=== PATIENT | female | born 1935 | race Caucasian/White ===

== ENCOUNTER 2020-11-22 21:22 | Inpatient (IN) | payer MEDICARE, SELFPAY ==
[2020-11-22] VITALS (13 sets, daily range): BP systolic 94–104; BP diastolic 37–61; PULSE 105–121; RESP 15–30; TEMP 37.6; O2SAT 85–95
--- NOTE | ~2020-11-22 | XR_ITS ---
EXAMINATION: XR chest 1V EXAM DATE: 11/27/2020 10:23 INDICATION: Pneumonia, weakness and confusion. TECHNIQUE: Portable AP frontal chest x-ray was obtained. Comparison is made to prior examination from 11/23/2020. FINDINGS: There is a right subclavian venous line, tip projecting over right atrium unchanged. Again there are numerous punctate lung granulomata. Small amount of left lower lobe pneumonia and atelectas is, stable or decreased in size. There are no pleural effusions. The cardiac silhouette is enlarged . There is pulmonary vascular congestion. There is no significant interval change. There is no pne umothorax suspected. The bones are osteopenic. There are bony degenerative changes. There is aortic arteriosclerosis. IMPRESSION: 1. Small amount of left lower lobe pneumonia or atelectasis, improving. 2. Right subclavian line could be safely retracted 5 cm. 3. Cardiomegaly, congestion. Reviewed, dictated and finalized at location B. ORATE COMMUNICATIONS MANAGER
--- NOTE | ~2020-11-22 | XR_ITS ---
EXAMINATION: XR chest port-a-cath/central DATE: 11/23/2020 04:32 INDICATION: Central line placement TECHNIQUE: frontal view of the chest was obtained. COMPARISON: Chest radiograph dated 11/23/2020 at 3:14 AM FINDINGS: Interval placement of a right subclavian central venous catheter with distal tip in the right atrium. Persistent patchy airspace opacity in the left lower lung zone. There is more subtle opacities in bi lateral lower lung zones have resolved. Multiple bilateral scattered small calcified pulmonary nodule s consistent with old granulomatous disease. Cardiomegaly. A couple compression fractures at the thor acolumbar junction. IMPRESSION: 1. Right subclavian central venous catheter with distal tip in the right atrium. Consider withdrawal by [address] the tip near the superior cavoatrial junction. 2. Persistent consolidation in the left lower lung zone which could represent atelectasis and/or pneu monia. 3. Cardiomegaly. Reviewed, dictated and finalized at location A. NG MACHINE FEEDER IMPRESSION: 1. Right subclavian central venous catheter with distal tip in the right atrium . Consider withdrawal by [address] the tip near the superior cavoatrial toni ction. 2. Persistent consolidation in the left lower lung zone which could represent a telectasis and/or pneumonia. 3. Cardiomegaly.
--- NOTE | ~2020-11-22 | US_ITS ---
EXAMINATION: US venous doppler LE EXAM DATE: 11/27/2020 10:22 INDICATION: Asymmetric edema of the legs. TECHNIQUE: Multiple grayscale, color flow and Doppler images of the lower extremity deep venous syste ms bilaterally were obtained and reviewed. Comparison is made to prior examination from 01/11/2019. FINDINGS: Right side: The right common femoral, femoral and profunda veins demonstrate normal color flow, respi ratory variation, augmentation and compressibility. Compressibility, color flow confirmed within the right popliteal, posterior tibial, peroneal, and greater saphenous veins. Resolution of previously seen right thigh thrombus. Left side: The left common femoral, femoral and profunda veins demonstrate normal color flow, respira tory variation, augmentation and compressibility. Compressibility, color flow confirmed within the l eft popliteal, posterior tibial, peroneal, and greater saphenous veins. IMPRESSION: 1. No lower extremity deep venous thrombosis bilaterally. Reviewed, dictated and finalized at location B. LIANCE ADMINISTRATOR
--- NOTE | ~2020-11-22 | XR_ITS ---
EXAMINATION: XR chest 1V portable DATE: 11/23/2020 03:13 INDICATION: Pneumonia TECHNIQUE: frontal view of the chest was obtained. COMPARISON: Chest radiograph dated 01/11/2019 FINDINGS: Mild opacities in the bilateral lower lung zones with more dense bandlike consolidation at the medial left lower lung zone. Multiple bilateral small scattered calcified nodules consistent with old granu lomatous disease. No pleural effusion or pneumothorax. Cardiomegaly with pulmonary vascular congestio n. IMPRESSION: 1. Mild opacities in bilateral lower lung zones with more dense consolidation in the medial left lowe r lung zone. Differential would include pneumonia, pulmonary edema, atelectasis or some combination t hereof. 2. Cardiomegaly with pulmonary vascular congestion. Reviewed, dictated and finalized at location A. ING ROOM SUPERVISOR IMPRESSION: 1. Mild opacities in bilateral lower lung zones with more dense consolidation i n the medial left lower lung zone. Differential would include pneumonia, pulmon rina edema, atelectasis or some combination thereof. 2. Cardiomegaly with pulmonary vascular congestion.
--- NOTE | ~2020-11-22 | CT_ITS ---
EXAMINATION: CT abdomen pelvis wo con DATE: 11/23/2020 00:16 INDICATION: Gastrointestinal bleed. Abdominal pain. Diarrhea. TECHNIQUE: Computed tomography (CT) of the abdomen and pelvis was performed without intravenous contr ast. Automated exposure control and iterative reconstruction technique were employed. The dose-length product was 311.68 mGy-cm. COMPARISON: 01/09/2019 FINDINGS: Very small right pleural effusion. Subtle centrilobular airspace opacities in the bilateral lower lob es with more dense region of consolidation at the posterior medial left lower lobe consistent with pn eumonia. Visualized inferior heart appears normal. Small pericardial effusion. Small sliding-type hia sean hernia. Sludge and gallstones in the dependent aspect of the gallbladder. Liver, spleen and bilateral adrenal glands are normal. Mild bilateral renal atrophy. 1-2 mm stone at the lower pole of the right kidney. Multiple additional small calcification is at the lateral renal galileo appear associated with vessels and are more likely to represent a prostatic calcifications and additional renal stones. No hydroneph rosis. Prominent inflammatory stranding surrounding the head of the pancreas and duodenum with retroperitone al fluid tracking caudally along the anterior right pararenal space. Findings consistent with acute i nterstitial pancreatitis. Suggestion of associated reactive periportal lymphadenopathy. Scattered colonic diverticula without adjacent inflammatory change to suggest diverticulitis. Left lo wer quadrant and colostomy with Argueta's pouch in the pelvis. Parastomal herniation of a moderate am ount of fat. No bowel obstruction. Bladder is normal. Multiple coarsely calcified degenerated uterine fibroids. The endometrial complex measures approximately 11 mm in thickness which is significantly g reater than expected for age. No abscess or free intraperitoneal gas. Right gluteus elysia intramusc ular lipoma. Moderate lumbar spondylosis. Chronic T11-L1 burst fractures with mild retropulsion resul ting in mild central canal stenosis at T10-T11 and T12-L1. Old healed left superior and inferior pubi c rami fractures. IMPRESSION: 1. Acute interstitial pancreatitis with prominent inflammatory stranding surrounding the head of the pancreas likely reactive periportal lymphadenopathy. 2. Pneumonia in the bilateral lower lung zones with tiny right pleural effusion. 3. Small sliding-type hiatal hernia with wall thickening at the distal esophagus suggesting reflux es ophagitis. 4. Sludge and gallstones in the gallbladder. 5. Mild diverticulosis with prior partial colectomy with left lower quadrant and colostomy and Hartma n's pouch formation. 6. Fibroid uterus with thickened endometrial complex which could be due to endometrial hyperplasia or carcinoma. Consider either hysteroscopy or pelvic ultrasound for further evaluation. 7. Nonobstructing nephrolithiasis. Reviewed, dictated and finalized at location A. STEWARD IMPRESSION: 1. Acute interstitial pancreatitis with prominent inflammatory stranding surrou nding the head of the pancreas likely reactive periportal lymphadenopathy. 2. Pneumonia in the bilateral lower lung zones with tiny right pleural effusion . 3. Small sliding-type hiatal hernia with wall thickening at the distal esophagu s suggesting reflux esophagitis. 4. Sludge and gallstones in the gallbladder. 5. Mild diverticulosis with prior partial colectomy with left lower quadrant an d colostomy and Argueta's pouch formation. 6. Fibroid uterus with thickened endometrial complex which could be due to endo metrial hyperplasia or carcinoma. Consider either hysteroscopy or pelvic ultras ound for further evaluation. 7. Nonobstructing nephrolithiasis.
[2020-11-22 21:55] LABS: Hematocrit 29.6 % (37.0-47.0); Hemoglobin 10.2 g/dL (12.0-15.0); Mean Corpuscular HGB Conc 34.5 g/dl (32-36); Mean Corpuscular Hemoglobin 29.7 pg (26-34); Mean Corpuscular Volume 86.3 fl (80-100); Mean Platelet Volume 10.7 fl (7.4-10.4); Platelet Count Result 311 k/mm3 (150-375); Red Blood Count 3.43 M/mm3 (4.2-5.4); Red Cell Distribution Width 13.4 % (11.5-14.5); White Blood Count 24.9 K/mm3 (4.5-10.0)
[2020-11-22 22:03] LABS: Add Urine Microscopic? YES; Appearance Urine Cloudy (Clear); Bacteria Urine 1+ /hpf; Bilirubin Urine Negative (Negative); Blood Urine 2+ (Negative); Color Urine Yellow (Yellow); Glucose Urine UA 1+ mg/dL (Negative); Ketones Urine Trace mg/dL (Negative); Leukocyte Esterase Ur Negative LEU/UL (Negative); Mucus Urine Few /lpf; Nitrate Urine Negative (Negative); Protein Urine 1+ mg/dL (Negative); RBC Urine 0-2 /hpf (0-2); Specific Grav Ur 1.014 (1.001-1.035); Urobilinogen Urine Negative mg/dL (<2.0); WBC Urine 0-3 /hpf
[2020-11-22 22:28] LABS: Band Neutrophils Percent 4 % (0-6); Lymphocytes Absolute Manual 0.74 K/mm3 (1.1-4.5); Monocytes Absolute Manual 0.49 K/mm3 (0.1-0.90); Monocytes Percent Manual 2 % (3-9); Neutrophils Absolute Manual 23.65 K/mm3 (1.7-7.2); Neutrophils Percent Manual 91 % (46-73); Platelet Estimate Adequate (Adequate); Total Cells Counted 100
[2020-11-22 22:40] LABS: INR 1.2; Prothrombin Time 15.3 Seconds (11.1-14.7)
[2020-11-22 22:41] LABS: Partial Thromboplastin Time 30.9 SECONDS (22.3-36.8)
--- NOTE | 2020-11-22 22:51 | ED.NAVMDI ---
HPI - Nausea/Vomiting/Diarrhea General Chief complaint: Nausea/Vomiting/Diarrhea Stated complaint: GI bleed Time Seen by Provider: 11/22/20 21:29 Source: EMS Mode of arrival: EMS Limitations: altered mental status History of Present Illness HPI Narrative: An 85-year-old female was brought into the emergency department via EMS. Patient is pleasantly confused, EMS provides most of the history. They report that the [facility] called EMS because she was apparently having coffee-ground emesis and had a hypotensive blood pressure of 96/46. This is unusual for the patient apparently. Patient is confused complaining of some mild abdominal pain that she characterizes as generalized. Related Data Allergies Allergy/AdvReac Type Severity Reaction Status Date / Time No Known Allergies Allergy Unverified 02/12/19 01:59 Review of Systems Review of Systems: ROS unobtainable: Yes unobtainable due to mental status PMFSH Social History Social History (Updated 11/23/20 @ 02:50 by Vincenzo Fatima MD) Smoking status: Never smoker Exam Narrative: Exam Narrative: GENERAL: Well-appearing, well-nourished, and in no acute distress. HEAD: Normocephalic, atraumatic. EYES: PERRLA and EOMI. ENT: Nares clear, no rhinorrhea or epistaxis. Mucous membranes moist. Oropharynx without tonsillar hypertrophy exudate or other lesions. Bilateral TMs pearly fong nonbulging NECK: Supple. No adenopathy or masses. No carotid bruits or JVD CHEST: Clear to auscultation. No respiratory distress. No wheezes rales or rhonchi HEART: Regular rate and rhythm. No murmur heard. Normal peripheral pulses. ABDOMEN: Soft, nontender, nondistended, normal active bowel sounds. Ostomy noted in the left lower quadrant filled with black/tarry stools EXTREMITIES: Normal range of motion. No edema. SKIN: Warm, dry, no rash. NEURO: No focal deficits. Alert and oriented x3. PSYCH: Normal mood and affect. Course Reevaluation(s) Reevaluation #1: Reevaluated and provided care update. Patient is resting comfortably, no complaints at this time. Time: 01:11 Reevaluation #2: Even after 2-1/2 L of IV fluids patient's blood pressures were continuing to remain soft and get softer. I went ahead and placed a central line and started the patient on Levophed. Time: 04:02 Consultations Consultation #1: With the upper GI bleed and findings of pancreatitis/duodenitis patient will likely need GI intervention. Case was discussed with Dr. Nunez. No one is currently on-call for GI. Dr. Nunez did call back and stated that he is not on-call and to try speaking with Dr. Drew. Time: 01:03 Consultation #2: Spoke with Dr. Drew, GI. After pertinent details of the patient's presentation and evaluation were discussed he does agree to consult on this patient. He recommends stopping the drip in favor of treating the patient with 40 mg IV twice daily. Time: 01:07 Consultation #3: Case discussed with Dr. Fatima, hospitalist. Details of the patient's presentation, evaluation and work-up were discussed. Plan was for the patient to be admitted as her blood pressures have been stable however as I was talking her blood pressure had dropped. Will continue to monitor to see if the patient needs ICU placement. Time: 01:38 Additional Consultation(s): Case further discussed with Dr. Andrea, home health care worker. He agrees to expect the patient in the ICU and will continue to monitor her for further management. Vital Signs Vital signs: Vital Signs Temperature 37.6 C H 11/22/20 21:23 Pulse Rate 119 H 11/22/20 21:23 Respiratory Rate 22 H 11/22/20 21:23 Blood Pressure 96/46 L 11/22/20 21:23 Pulse Oximetry 93 11/22/20 21:23 Temperature 37.4 C 11/23/20 02:34 Pulse Rate 106 H 11/23/20 02:34 Respiratory Rate 21 H 11/23/20 02:34 Blood Pressure 101/54 L 11/23/20 02:34 Pulse Oximetry 94 11/23/20 02:34 Procedures Central Line Placement Right SC: Central Line Time: 04:13
[2020-11-22 23:02] LABS: Alanine Aminotransferase 16 U/L (4-35); Albumin Level 2.6 g/dL (3.5-5.1); Alkaline Phosphatase 112 U/L (38-126); Anion Gap 6 mmol/L (8-16); Aspartate Amino Transferase 35 U/L (14-36); Bilirubin,Total 0.9 mg/dL (0.2-1.3); Blood Urea Nitrogen 71 mg/dL (7-17); Calcium 7.3 mg/dL (8.4-10.2); Carbon Dioxide 26 mmol/L (22-30); Chloride 93 mmol/L (98-107); Estimated CRCL calculation 20 ml/min; Estimated Glomerular Filt Rate 31; Glucose 261 mg/dL (65-105); Lipase 233 U/L (23-300); Magnesium 1.7 mg/dL (1.6-2.3); Potassium 2.8 mmol/L (3.4-5.0); Sodium 125 mmol/L (137-145)
[2020-11-22] MEDS: LACTATED RINGERS 1,000 ML 999 ML IV CONT (23:22)
[2020-11-22] MEDS: ONDANSETRON INJ 4 MG/2 ML VIAL IV PUSH (23:22)
[2020-11-23] VITALS (58 sets, daily range): BP systolic 80–127; BP diastolic 34–66; PULSE 86–123; RESP 14–31; TEMP 36.6–37.6; O2SAT 90–99; BMI 23.3
[2020-11-23] MEDS: PANTOPRAZOLE SODIUM IV 40 MG VIAL 80 MG IV PUSH (00:57)
[2020-11-23] MEDS: LACTATED RINGERS 1,000 ML 999 ML IV CONT ×2 (01:44→11:17)
--- NOTE | 2020-11-23 02:00 | PC.NURSE ---
EDP Nast in room for central line placement.
--- NOTE | 2020-11-23 02:35 | PM.IMHP ---
H&P: HPI History of Present Illness Date/Time: 11/23/20 02:35 Chief Complaint: coffee ground emesis and hypotension Narrative: This is an 85 year old female with known LLQ colostomy who presented from the long-term secondary to coffee ground emesis and hypotension. The patient is confused and was complaining of generalized abdominal pain to the ER provider. The patient was evaluated in the ER and found to be in septic shock with leukocytosis of 24,900, tachycardia, and hypotension despite 3L of NS IV bolus. Colostomy contents were guiaic positive+ CT abd/pelvis demonstrated acute pancreatitis, duodenitis, as well as bibasilar infiltrates. ER provider consulted Gastroenterology who will see the patient in am. She was also treated with IV antibiotics for pneumonia. On my encounter with the patient she is very confused and cannot tell me why she is here. She currently denies any symptoms. Review of Systems Review of Systems: ROS unobtainable: Yes unobtainable due to mental status PMFSH Social History Social History (Updated 11/23/20 @ 02:50 by Vincenzo Fatima MD) Smoking status: Unknown if ever smoked Alcohol intake: unknown Substance use: unknown Spiritual care concerns: No Comments Past medical/surgical/social/family histories are not obtainable from the patient due to her confusion. Meds Home Medications and Allergies Home Medications Medication Instructions Recorded Confirmed Type Unable to Obtain Home Medications 11/23/20 11/23/20 History Allergies Allergy/AdvReac Type Severity Reaction Status Date / Time No Known Allergies Allergy Unverified 02/12/19 01:59 Vital Signs Vital Signs - 24 hr 11/22/20 21:23 11/22/20 22:25 11/22/20 22:30 Temperature 37.6 C H Pulse Rate 119 H 105 H 119 H Respiratory Rate 22 H 26 H 20 Blood Pressure 96/46 L Pulse Oximetry 93 11/22/20 22:31 11/22/20 22:46 11/22/20 23:00 Temperature Pulse Rate 108 H 114 H 118 H Respiratory Rate 19 26 H 27 H Blood Pressure 94/61 L 100/41 L Pulse Oximetry 11/22/20 23:01 11/22/20 23:15 11/22/20 23:16 Temperature Pulse Rate 111 H 121 H 120 H Respiratory Rate 27 H 29 H 30 H Blood Pressure 104/37 L 98/44 L Pulse Oximetry 92 92 01/29/21 23:17 11/22/20 23:33 11/22/20 23:44 Temperature Pulse Rate 118 H 110 H Respiratory Rate 27 H 15 Blood Pressure 101/42 L Pulse Oximetry 95 85 L 11/22/20 23:48 11/23/20 00:17 11/23/20 00:30 Temperature Pulse Rate 109 H 119 H 104 H Respiratory Rate 23 H 26 H 21 H Blood Pressure 100/42 L Pulse Oximetry 93 11/23/20 00:31 11/23/20 00:46 Temperature Pulse Rate 106 H 112 H Respiratory Rate 23 H 24 H Blood Pressure 104/47 L 101/42 L Pulse Oximetry 92 94 Exam Const: General: alert, awake and ill appearing Nutritional Appearance: well nourished Orientation/consciousness: confusion HENMT: Head: normal to inspection General nose exam: Normal external nose present Face and sinus: normal facial exam Mouth: Yes Normal oral and palatal mucosa present and Yes oropharynx normal Eyes: Pupils: Equal, round and reactive pupils present EOM: EOMs intact bilaterally Neck: Neck: supple and no JVD Thyroid: thyroid normal Lymphatic: lymphadenopathy not noted Resp: Effort & Inspection: normal respiratory effort Auscultation: clear to auscultation bilaterally Cardio: Rate: regular rate Rhythm: regular rhythm Heart sounds: no murmurs GI: Inspection: other (LLQ colostomy bag w/ dark black stool++ ) GI Palp: Yes abdominal tenderness (Mild diffuse tenderness w/ palpation++ ) Auscultation: normal bowel sounds Skin: General skin exam: normal color and no rashes or lesions noted Neuro: Cranial nerves: Yes CN's II-XII intact bilaterally and Yes Equal, round and reactive pupils present Speech: normal speech Motor exam (neuro): 5/5 motor strength present throughout Sensory Exam: normal sensation Extrem: General: normal to inspect
--- NOTE | 2020-11-23 02:40 | PC.NURSE ---
Spoke to Kaylin at [facility] to have patient's medication list be faxed to ED.
--- NOTE | 2020-11-23 03:54 | PC.NURSE ---
EDP Nast in room for central line placement.
[2020-11-23] MEDS: NOREPINEPHRINE 8 MG/D5W 250 ML 8 MG/250 ML BAG 9.38 MG IV CONT (04:15)
--- NOTE | 2020-11-23 04:30 | PC.NURSE ---
Patient received a total of 3L of fluids in ED.
--- NOTE | 2020-11-23 05:50 | ADMGEN ---
This patient, Yennifer Baer, was admitted to Intensive Care Unit-8. Patient/family oriented to hospital policies and general routines including ID bracelet, bed and alarms, visiting hours, pain management, procedures, bathroom and other care routines, personal items, smoking policy, room service/diet, and visiting hours. Information on how to activate the Rapid Response Team has been discussed. Patient/Family are encouraged to report perceived risks to care and to ask questions if they do not understand what they are told or what they should do.
[2020-11-23] MEDS: INSULIN ASPART (*BKC) 100 UNITS/ML SUB-Q ×3 (06:52→17:48)
[2020-11-23] MEDS: CENTRAL LINE FLUSH 10 ML IV PUSH ×4 (06:52→22:58)
[2020-11-23 07:03] LABS: Glucose Point of Care 379 (65-105)
[2020-11-23 07:19] LABS: Hematocrit 24.9 % (37.0-47.0); Hemoglobin 8.4 g/dL (12.0-15.0)
[2020-11-23 07:34] LABS: Lactic Acid Reflex 1.2 mmol/L (0.7-2.1)
[2020-11-23 07:35] LABS: Hemoglobin A1C 8.8 % (<5.7)
[2020-11-23 07:48] LABS: Anion Gap 3 mmol/L (8-16); Blood Urea Nitrogen 51 mg/dL (7-17); Calcium 7.1 mg/dL (8.4-10.2); Carbon Dioxide 26 mmol/L (22-30); Chloride 95 mmol/L (98-107); Estimated CRCL calculation 25 ml/min; Estimated Glomerular Filt Rate 39; Glucose 352 mg/dL (65-105); Potassium 3.3 mmol/L (3.4-5.0); Sodium 124 mmol/L (137-145)
[2020-11-23 11:28] LABS: Glucose Point of Care 318 (65-105)
[2020-11-23] MEDS: LACTATED RINGERS 1,000 ML 75 ML IV CONT ×2 (12:38→22:59)
--- NOTE | 2020-11-23 13:59 | WPDCNINT ---
Assessment and Plan Assessment and plan (1) Septic shock: Code(s): A41.9 - Sepsis, unspecified organism; R65.21 - Severe sepsis with septic shock Status: Acute Assessment and Plan: Lactic acid has normalized blood pressure is a bit soft but has improved. She still appears to be a bit dehydrated so will give her an additional 1 L of lactated Ringer's followed by 75 cc an hour. Agree with continuing antibiotics. Follow-up on blood and urine cultures. (2) Pneumonia: Qualifiers: Pneumonia type: due to unspecified organism Laterality: left Lung location: lower lobe of lung Qualified Code(s): J18.9 - Pneumonia, unspecified organism Code(s): J18.9 - Pneumonia, unspecified organism Status: Acute Assessment and Plan: Continue IV antibiotics, scheduled bronchodilators. (3) Pancreatitis: Qualifiers: Chronicity: acute Pancreatitis type: unspecified pancreatitis type Acute pancreatitis complication: unspecified Qualified Code(s): K85.90 - Acute pancreatitis without necrosis or infection, unspecified Code(s): K85.90 - Acute pancreatitis without necrosis or infection, unspecified Status: Acute Assessment and Plan: NPO, bowel rest. Continue IV hydration. (4) GI bleed: Qualifiers: GI bleed type/associated pathology: unspecified gastrointestinal hemorrhage type Qualified Code(s): K92.2 - Gastrointestinal hemorrhage, unspecified Code(s): K92.2 - Gastrointestinal hemorrhage, unspecified Status: Acute Assessment and Plan: Appears to be an upper GI bleed. NPO. Monitor H/H, transfuse prn. Continue Protonix IV. GI has been consulted by ER provider. Continue GI recommendations. (5) Hypokalemia: Code(s): E87.6 - Hypokalemia Status: Acute Assessment and Plan: KCL was replaced by ER provider. Monitor serum potassium. Continue telemetry. We will consider further KCl replacement as needed. (6) Leukocytosis: Qualifiers: Leukocytosis type: unspecified Qualified Code(s): D72.829 - Elevated white blood cell count, unspecified Code(s): D72.829 - Elevated white blood cell count, unspecified Status: Acute Assessment and Plan: Secondary to acute sepsis and pneumonia. Monitor CBCd. (7) Normocytic anemia: Code(s): D64.9 - Anemia, unspecified Status: Acute Assessment and Plan: Acute vs. Chronic. The patient appears to be having a GI bleed. Monitor H/H, transfuse prn. (8) Hyponatremia: Code(s): E87.1 - Hypo-osmolality and hyponatremia Status: Acute Assessment and Plan: May be secondary to acute dehydration. Monitor serum sodium. Check urine osm, urine sodium. (9) Acute renal failure: Qualifiers: Acute renal failure type: with other specified pathological lesion Qualified Code(s): N17.8 - Other acute kidney failure Code(s): N17.9 - Acute kidney failure, unspecified Status: Acute Assessment and Plan: Likely seconadry to hypoperfusion from septic shock. Continue IV fluid challenge. Monitor renal function and urine output. Consider checking renal ultrasound and nephrology consultation in am. (10) Abnormal glucose: Code(s): R73.09 - Other abnormal glucose Status: Acute Assessment and Plan: r/o Diabetes mellitus. Check HgbA1c. Accuchecks, SSI Coverage, hypoglycemic protocol. Additional Plan Code status: Full code Critical care time spent: 36minutes Due to a high probability of clinically significant, life threatening deterioration, the patient required my highest level of preparedness to intervene emergently and I personally spent this critical care time directly and personally managing the patient. This critical care time included obtaining a history; examining the patient; pulse oximetry; ordering and review of studies; arranging urgent treatment with development of a management plan; evaluation
[2020-11-23 17:05] LABS: Anion Gap -2 mmol/L (8-16); Blood Urea Nitrogen 38 mg/dL (7-17); Calcium 7.3 mg/dL (8.4-10.2); Carbon Dioxide 29 mmol/L (22-30); Chloride 98 mmol/L (98-107); Estimated CRCL calculation 30 ml/min; Estimated Glomerular Filt Rate 47; Glucose 207 mg/dL (65-105); Potassium 3.1 mmol/L (3.4-5.0); Sodium 125 mmol/L (137-145)
--- NOTE | 2020-11-23 17:26 | PM.IMPN ---
Progress Note: A&P Assessment and Plan (1) Septic shock: Code(s): A41.9 - Sepsis, unspecified organism; R65.21 - Severe sepsis with septic shock Status: Acute Assessment and Plan: Lactic acid normal, Continue IV hydration. Continue Vasopressor support. Continue IV antibiotics. Blood, urine, sputum cultures all pending. Marked leukocytosis suggest infectious etiology (2) Pneumonia: Qualifiers: Pneumonia type: due to unspecified organism Laterality: left Lung location: lower lobe of lung Qualified Code(s): J18.9 - Pneumonia, unspecified organism Code(s): J18.9 - Pneumonia, unspecified organism Status: Acute Assessment and Plan: Continue IV antibiotics, scheduled bronchodilators. (3) Pancreatitis: Qualifiers: Chronicity: acute Pancreatitis type: unspecified pancreatitis type Acute pancreatitis complication: unspecified Qualified Code(s): K85.90 - Acute pancreatitis without necrosis or infection, unspecified Code(s): K85.90 - Acute pancreatitis without necrosis or infection, unspecified Status: Acute Assessment and Plan: NPO, bowel rest. Continue IV hydration. Significantly lipase was normal (4) GI bleed: Qualifiers: GI bleed type/associated pathology: unspecified gastrointestinal hemorrhage type Qualified Code(s): K92.2 - Gastrointestinal hemorrhage, unspecified Code(s): K92.2 - Gastrointestinal hemorrhage, unspecified Status: Acute Assessment and Plan: Appears to be an upper GI bleed. NPO. Monitor H/H, transfuse prn. Continue Protonix IV. GI has been consulted . Continue GI recommendations. (5) Hypokalemia: Code(s): E87.6 - Hypokalemia Status: Acute Assessment and Plan: KCL was replaced by ER provider. Monitor serum potassium. Continue telemetry. We will consider further KCl replacement as needed. (6) Normocytic anemia: Code(s): D64.9 - Anemia, unspecified Status: Acute Assessment and Plan: Acute vs. Chronic. The patient appears to be having a GI bleed. Monitor H/H, transfuse prn. (7) Hyponatremia: Code(s): E87.1 - Hypo-osmolality and hyponatremia Status: Acute Assessment and Plan: May be secondary to acute dehydration. Monitor serum sodium. Check urine osm, urine sodium. From her past records she has chronic hyponatremia typically 125-130 (8) Acute renal failure: Qualifiers: Acute renal failure type: with other specified pathological lesion Qualified Code(s): N17.8 - Other acute kidney failure Code(s): N17.9 - Acute kidney failure, unspecified Status: Acute Assessment and Plan: Likely seconadry to hypoperfusion from septic shock. Continue IV fluid challenge. Monitor renal function and urine output. Creatinine fell from 1.6-1.1 with hydration (9) Abnormal glucose: Code(s): R73.09 - Other abnormal glucose Status: Acute Assessment and Plan: HgbA1c. 8.8 Accuchecks, SSI Coverage, hypoglycemic protocol. May need low-dose long-acting insulin (10) DVT prophylaxis: Code(s): Z29.9 - Encounter for prophylactic measures, unspecified Status: Acute Assessment and Plan: Mechanical with GI bleed Subjective Date/time seen: 11/23/20 17:26 Interval history: Date of visit 11/23 85-year-old demented female [facility] coffee-ground emesis and confusion. Presented here hypotensive with leukocytosis guaiac-positive stool and CT scan revealed pancreatitis and duodenitis. Patient was hydrated cultured placed on antibiotics for possible pneumonitis and admitted to the ICU. Presently she is hemodynamically stable but still lethargic Exam Narrative: Exam Narrative: Blood pressure 110/60 pulse is 86 respirations 22 per minute saturating 98% on 2 L nasal cannula afebrile Pupils equal reactive light sclera anicteric Neck supple Lungs hear no areas consolidation CV tach
[2020-11-23 17:38] LABS: Glucose Point of Care 207 (65-105)
--- NOTE | 2020-11-23 19:52 | CONS_ITS ---
DATE OF CONSULTATION: 11/23/2020 HISTORY OF PRESENT ILLNESS: An 85-year-old female [facility] patient, who has history of pulmonary embolus/DVT, diabetes, dementia, left lower quadrant colostomy for unknown reasons and history of colostomy tube, now presents from [facility] with confusion, abdominal pain, nausea, vomiting, coffee-grounds emesis, and hypotension. She is diagnosed with septic shock. I am now asked to provide GI evaluation at the request of the hospitalist service. Primary care provider is Dr. Milad Curry, unknown if she has a fuel cell repairer. The patient cannot provide any meaningful history. I have spoken with nurse Garcia, who tells me that she is currently not having any GI complaints including abdominal pain, nausea, or vomiting. Her stool is dark. REVIEW OF SYSTEMS: Otherwise, review of systems is unobtainable. No endocarditis, risk factors. ALLERGIES: NO KNOWN DRUG ALLERGIES. MEDICATIONS: Outpatient medications unknown. SOCIAL HISTORY: Nonsmoker, presumably nondrinker. FAMILY HISTORY: Unknown and unobtainable. PHYSICAL EXAMINATION: GENERAL: Slender elderly female lying in bed, in no apparent distress. She has no lower extremity edema, jaundice, spider angioma, palmar erythema. SKULL: Normocephalic, atraumatic. Pupils nonicteric. Oropharynx clear. NECK: Supple without thyromegaly. LUNGS: Clear to auscultation. HEART: Rate and rhythm regular. S1, S2 normal. ABDOMEN: Normoactive bowel sounds. Soft, nontender, nonrigid, nondistended without hepatosplenomegaly or masses. She has left lower quadrant ostomy that is normal appearing. RECTAL: Deferred. NEUROLOGIC: Conscious and confused. LABORATORY STUDIES: Today hemoglobin 8, hematocrit 25. On 11/22, hemoglobin 10, hematocrit 30, white count of 25, MCV 86. INR is 1.2, PTT 31, creatinine 1.6, T. bilirubin 0.9, alkaline phosphatase 112, AST 35, ALT is 16, lipase 233. IMAGING: CT scan of the abdomen and pelvis without contrast shows gallstones, some changes possibly consistent with acute pancreatitis, pneumonia, hiatal hernia, and mild diverticulosis. ASSESSMENT AND PLAN: 1. Abdominal pain, nausea, vomiting, hematemesis, acute blood loss anemia, heme-positive stool, and melena. 2. Certainly concern for GI source of blood loss, most likely upper. This could be ulceration AVM malignancy, Karen-Hernandez tear, esophagitis. At this point, patient does not appear to have active GI bleeding. We will follow H and H and transfuse as needed. IV acid suppression. Consider anemia labs including B12, folate, ferritin, iron studies and reticulocyte count. Would avoid aspirin, nonsteroidals and anticoagulants. We will hold on endoscopy for now. 3. Abnormal imaging digestive with hiatal hernia and diverticulosis. Observe. 4. Abnormal imaging biliary with gallstones. Unlikely symptomatic and we will observe. 5. Abnormal imaging of the pancreas. The patient is currently asymptomatic and does not appear to have acute pancreatitis clinically. Her lipase is normal. We will take observational approach. Okay with me to advance diet and observe. Thank you for allowing me to share in the care of this patient. I will continue to follow. NEMO SALDAÑA M.D. CC:? Milad Curry M.D. WET PROCESS MILLER HEAD ASSISTANT WET PROCESS MILLER HEAD ASSISTANT D Jaron MT: Luis Alberto
[2020-11-23 23:58] LABS: Glucose Point of Care 200 (65-105)
[2020-11-24] VITALS (14 sets, daily range): BP systolic 92–113; BP diastolic 46–63; PULSE 91–112; RESP 16–26; TEMP 35.7–37.3; O2SAT 91–100
[2020-11-24 04:01] LABS: Sodium Urine Random 42 meq/L
[2020-11-24 05:38] LABS: Glucose Point of Care 230 (65-105)
[2020-11-24] MEDS: INSULIN ASPART (*BKC) 100 UNITS/ML SUB-Q (05:39)
[2020-11-24] MEDS: CENTRAL LINE FLUSH 10 ML IV PUSH ×4 (05:40→21:35)
[2020-11-24 05:58] LABS: Basophils Absolute Auto 0.1 K/mm3 (0.0-0.1); Basophils Percent Auto 0.6 % (0.2-1.2); Eosinophils Absolute Auto 0.1 K/mm3 (0-0.3); Eosinophils Percent Auto 0.3 % (0-4.4); Hematocrit 23.8 % (37.0-47.0); Hemoglobin 7.9 g/dL (12.0-15.0); Immature Granulocyte Absolute 0.37 K/mm3 (0.00-0.031); Immature Granulocyte Percent A 1.8 % (0-0.5); Lymphocytes Absolute Auto 1.13 K/mm3 (0.9-3.2); Lymphocytes Percent Auto 5.5 % (18.3-44.2); Mean Corpuscular HGB Conc 33.2 g/dl (32-36); Mean Corpuscular Hemoglobin 29.9 pg (26-34); Mean Corpuscular Volume 90.2 fl (80-100); Mean Platelet Volume 10.1 fl (7.4-10.4); Monocytes Absolute Auto 1.2 K/mm3 (0.1-0.6); Monocytes Percent Auto 6.1 % (2.6-8.5); Neutrophils Absolute Auto 17.6 K/mm3 (1.3-6.7); Neutrophils Percent Auto 85.7 % (45.5-73.1); Platelet Count Result 280 k/mm3 (150-375); Red Blood Count 2.64 M/mm3 (4.2-5.4); Red Cell Distribution Width 14.1 % (11.5-14.5); White Blood Count 20.5 K/mm3 (4.5-10.0)
[2020-11-24 06:50] LABS: Anion Gap -3 mmol/L (8-16); Blood Urea Nitrogen 27 mg/dL (7-17); Calcium 7.3 mg/dL (8.4-10.2); Carbon Dioxide 29 mmol/L (22-30); Chloride 101 mmol/L (98-107); Estimated CRCL calculation 33 ml/min; Estimated Glomerular Filt Rate 53; Glucose 228 mg/dL (65-105); Potassium 3.6 mmol/L (3.4-5.0); Sodium 127 mmol/L (137-145)
--- NOTE | 2020-11-24 08:44 | WPDGIPROGNO ---
Progress Note: A&P Additional Plan GI [facility] 24 Nov 2020 No complaints. No report of active bleed VSS soft/NT Hct 24 ASSESSMENT AND PLAN: A. Abdominal pain, nausea, vomiting, hematemesis, acute blood loss anemia, heme-positive stool and melena: - Concern for GI source of blood loss, most likely upper - Could be ulceration AVM malignancy, Karen-Hernandez tear, esophagitis - No active GI bleeding - Follow H and H and transfuse as needed - IV acid suppression - Consider anemia labs including B12, folate, ferritin, iron studies and reticulocyte count - Avoid aspirin, nonsteroidals and anticoagulants - Will leave decision regarding EGD in am to others; patient is NPO except meds after midnight B. Abnormal imaging digestive with hiatal hernia and diverticulosis: observe. C. Abnormal imaging biliary with gallstones: unlikely symptomatic; observe. D. Abnormal imaging of the pancreas: - Currently asymptomatic and does not appear to have acute pancreatitis clinically - Lipase is normal - Observe Further recommendations per Dr. Mosley/Enrique. [facility] [phone] Subjective Date/time seen: 11/24/20 08:44 Objective Data Vital Signs Vital Signs: Vital Signs - 24 hr 11/23/20 09:00 11/23/20 10:00 11/23/20 11:26 Temperature Pulse Rate 97 Respiratory Rate 20 Blood Pressure 127/56 L 96/50 L Pulse Oximetry 97 97 11/23/20 12:00 11/23/20 13:00 11/23/20 14:00 Temperature Pulse Rate 93 94 Respiratory Rate 20 24 H Blood Pressure 91/41 L 80/34 L 102/46 L Pulse Oximetry 98 90 11/23/20 16:00 11/23/20 17:51 11/23/20 18:00 Temperature 36.6 C Pulse Rate 99 102 H 98 Respiratory Rate 22 H 14 Blood Pressure 111/57 L 111/46 L Pulse Oximetry 98 95 11/23/20 20:00 11/23/20 22:00 11/24/20 00:00 Temperature 36.9 C 36.3 C L Pulse Rate 97 90 99 Respiratory Rate 28 H 22 H 26 H Blood Pressure 102/52 L 102/52 L 112/55 L Pulse Oximetry 94 94 95 11/24/20 01:34 11/24/20 04:00 11/24/20 05:30 Temperature 36.6 C Pulse Rate 98 91 Respiratory Rate 24 H 22 H Blood Pressure 101/47 L 96/50 L 96/50 L Pulse Oximetry 91 96 11/24/20 05:45 11/24/20 05:46 Temperature Pulse Rate 103 H 99 Respiratory Rate 16 Blood Pressure 98/54 L Pulse Oximetry 95 Intake/Output Intake/Output: Intake & Output 11/21/20 11/22/20 11/23/20 11/24/20 23:59 23:59 23:59 23:59 Intake Total 4540 300 Output Total 50 Balance 4490 300 Meds/Results Medications: Active Medications Generic Name Dose Route Start Last Admin Trade Name Freq PRN Reason Stop Dose Admin Dextrose 12.5 gm 11/23/20 02:55 Dextrose 50% 25 Gm/50 Ml Syringe IV PUSH PRN PRN Hypoglycemia Protocol Glucagon 1 mg 11/23/20 02:55 Glucagon For Inj 1 Mg Vial IM PRN PRN Hypoglycemia Protocol Ceftriaxone Sodium/Dextrose 1 gm in 50 mls @ 100 mls/hr 11/24/20 01:00 11/24/20 01:38 Rocephin 1 Gm/D5w 50 Ml IVPB Infused Q24H MIKE Infusion Azithromycin 500 mg in 250 mls @ 250 mls/hr 11/24/20 02:00 11/24/20 02:38 Zithromax IVPB Infused Q24H MIKE Infusion Dextrose 1,000 mls @ 100 mls/hr 11/23/20 02:55 Dextrose 5% 1,000 Ml IVPB PRN PRN Hypoglycemia Protocol Norepinephrine Bitartrate 8 mg in 250 mls @ 1.88 mls/hr 11/23/20 03:40 11/24/20 05:30 Levophed 8 Mg/D5w 250 Ml IV CONT 1 mcg/min .Q72H MIKE 1.88 mls/hr Infusion Lactated Ringer's 1,000 mls @ 75 mls/hr 11/23/20 10:25 11/23/20 22:59 Lr - Lactated Ringers Iv IV CONT 75 mls/hr .[id number] MIKE Administration Insulin Aspart 4 - 8 units 11/23/20 12:00 11/24/20 05:39 Insulin Aspart (*Bkc) 100 Units/Ml SUB-Q 4 units Q6HR MIKE Administration Protocol Sodium Chloride 10 ml 11/23/20 06:00 11/24/20 05:40 Central Line Flush IV PUSH 10 ml Q8HR MIKE Administration Sodium Chloride 10 ml 11/23/20 18:00 11/23/20 17:47 Central Line Flush IV PUSH 10 ml DAILY@1800 MIKE Administrat
--- NOTE | 2020-11-24 12:18 | WPDINTPN ---
Progress Note: A&P Assessment and Plan (1) Sepsis due to pneumonia: Code(s): J18.9 - Pneumonia, unspecified organism; A41.9 - Sepsis, unspecified organism Status: Acute Assessment and Plan: left lower lobe pneumonia - -Continue ceftriaxone and azithromycin for a total of 7 days. Blood cultures have been negative to date (2) Septic shock: Code(s): A41.9 - Sepsis, unspecified organism; R65.21 - Severe sepsis with septic shock Status: Acute Assessment and Plan: has resolved (3) Diabetes: Code(s): E11.9 - Type 2 diabetes mellitus without complications Status: Acute Assessment and Plan: HB A1c 8.8. Continue sliding scale insulin and start diabetic diet today. She may need long-acting insulin once she is eating more consistently. Additional Plan Code Status is Full Total Critical Care Time - 35 minutes Due to a high probability of clinically significant, life threatening deterioration, the patient required my highest level of preparedness to intervene emergently and I personally spent this critical care time directly and personally managing the patient. This critical care time included obtaining a history; examining the patient; pulse oximetry; ordering and review of studies; arranging urgent treatment with development of a management plan; evaluation of patient's response to treatment; frequent reassessment; and discussions with other providers. It was exclusive of separately billable procedures and treating other patients and teaching time. Please see Assessment and Plan section and the rest of the note for further information on patient assessment and treatment Subjective Date/time seen: 11/24/20 12:18 Interval history: This is an 85-year-old female who was admitted from the detention with shock, hypovolemia and left lower lobe pneumonia. She has been weaned off vasopressor support and is doing well on ceftriaxone and azithromycin. There has been no signs of GI bleeding. She is diabetic and has been brought to my attention that she has not been taking her medications at the detention since May. Review of Systems Review of Systems: All systems reviewed & are unremarkable except as noted in HPI and below Exam Narrative: Exam Narrative: appears dehydrated Const: General: alert, awake and ill appearing Nutritional Appearance: well nourished Orientation/consciousness: confusion HENMT: Head: normal to inspection General nose exam: Normal external nose present Face and sinus: normal facial exam Mouth: Yes Normal oral and palatal mucosa present and Yes oropharynx normal Eyes: Pupils: Equal, round and reactive pupils present EOM: EOMs intact bilaterally Neck: Neck: supple and no JVD Thyroid: thyroid normal Lymphatic: lymphadenopathy not noted Resp: Effort & Inspection: normal respiratory effort Auscultation: clear to auscultation bilaterally Cardio: Rate: regular rate Rhythm: regular rhythm Heart sounds: no murmurs GI: Inspection: other (LLQ colostomy bag w/ dark black stool++ ) GI Palp: Yes abdominal tenderness (Mild diffuse tenderness w/ palpation++ ) Auscultation: normal bowel sounds Skin: General skin exam: normal color and no rashes or lesions noted Neuro: Cranial nerves: Yes CN's II-XII intact bilaterally and Yes Equal, round and reactive pupils present Speech: normal speech Motor exam (neuro): 5/5 motor strength present throughout Sensory Exam: normal sensation Extrem: General: normal to inspection and no edema Objective Data Vital Signs Vital Signs: Vital Signs - 24 hr 11/23/20 13:00 11/23/20 14:00 11/23/20 16:00 Temperature 36.6 C Pulse Rate 94 99 Respiratory Rate 24 H 22 H Blood Pressure 80/34 L 102/46 L 111/57 L Pulse Oximetry 90 98 11/23/20 17:51 11/23/20 18:00 11/23/20 20:00 Temperature 36.9 C Pulse Rate 102 H 98 97 Respiratory Rate 14 28 H Blood Pressure 111/46 L 102/52 L Pulse Oximetry
--- NOTE | 2020-11-24 15:14 | PM.IMPN ---
Progress Note: A&P Assessment and Plan (1) Septic shock: Code(s): A41.9 - Sepsis, unspecified organism; R65.21 - Severe sepsis with septic shock Status: Acute Assessment and Plan: off pressors now, PNA probable source . Continue IV antibiotics. Blood, urine, sputum cultures so far NG. wbc decreased to 20K. (2) Pneumonia: Qualifiers: Pneumonia type: due to unspecified organism Laterality: left Lung location: lower lobe of lung Qualified Code(s): J18.9 - Pneumonia, unspecified organism Code(s): J18.9 - Pneumonia, unspecified organism Status: Acute Assessment and Plan: Continue IV antibiotics ceftriaxone and azithromyacin D#2 , scheduled bronchodilators. wbc falling and bp up. (3) Pancreatitis: Qualifiers: Chronicity: acute Pancreatitis type: unspecified pancreatitis type Acute pancreatitis complication: unspecified Qualified Code(s): K85.90 - Acute pancreatitis without necrosis or infection, unspecified Code(s): K85.90 - Acute pancreatitis without necrosis or infection, unspecified Status: Acute Assessment and Plan: CT dx with normal lipase. exam benign and will advance diet as per GI (4) GI bleed: Qualifiers: GI bleed type/associated pathology: unspecified gastrointestinal hemorrhage type Qualified Code(s): K92.2 - Gastrointestinal hemorrhage, unspecified Code(s): K92.2 - Gastrointestinal hemorrhage, unspecified Status: Acute Assessment and Plan: Appears to be an upper GI bleed. . Monitor H/H, transfuse prn. Continue Protonix . GI has been consulted and possible EGD 11/25 (5) Hypokalemia: Code(s): E87.6 - Hypokalemia Status: Acute Assessment and Plan: KCL was replaced by ER provider. Monitor serum potassium. Continue telemetry. We will consider further KCl replacement as needed. (6) Leukocytosis: Qualifiers: Leukocytosis type: unspecified Qualified Code(s): D72.829 - Elevated white blood cell count, unspecified Code(s): D72.829 - Elevated white blood cell count, unspecified Status: Acute Assessment and Plan: Secondary to acute sepsis and pneumonia. Monitor CBCd. (7) Normocytic anemia: Code(s): D64.9 - Anemia, unspecified Status: Acute Assessment and Plan: Acute vs. Chronic. The patient appears to be having a GI bleed. Monitor H/H, transfuse prn. check fe studies and b12 with retic (8) Hyponatremia: Code(s): E87.1 - Hypo-osmolality and hyponatremia Status: Acute Assessment and Plan: May be secondary to acute dehydration. Monitor serum sodium. Na 127 today. Past records show Na typically 125-130. Urine Na 42 so not all dehydration (9) Acute renal failure: Qualifiers: Acute renal failure type: with other specified pathological lesion Qualified Code(s): N17.8 - Other acute kidney failure Code(s): N17.9 - Acute kidney failure, unspecified Status: Acute Assessment and Plan: Likely seconadry to hypoperfusion from septic shock. Continue IV fluid . creatinine decreased from 1.6-1.0 (10) Abnormal glucose: Code(s): R73.09 - Other abnormal glucose Status: Acute Assessment and Plan: A1c 8.8 , continue SS and add low dose lantus hs Subjective Date/time seen: 11/24/20 15:14 Interval history: Date of visit 11/24 85-year-old demented female admitted from the [place] [facility] after coffee-ground emesis and confusion. Presented here hypotensive with leukocytosis guaiac-positive stool and CT scan revealed pancreatitis and duodenitis. Patient was hydrated cultured placed on antibiotics for PNA and admitted to the ICU. Presently she is hemodynamically stable and alert stating she feels much better Exam Narrative: Exam Narrative: Blood pressure 100/52 off pressors, pulse is 100 respirations 22 per minute saturating 100% on 2 L nasal cannula afebrile Pupils equal reactive l
--- NOTE | 2020-11-24 15:30 | PCPTNOTE ---
Orders received...spoke with Dr Wells, he wants therapy to begin tomorrow (Wednesday, [id number])...also the patient is very confused...spoke with the NH and patient is 'wc bound'...she never walks, but she is able to transfer to/from the without assistance
[2020-11-24 16:57] LABS: Glucose Point of Care 184 (65-105)
[2020-11-24] MEDS: LACTATED RINGERS 1,000 ML 75 ML IV CONT (16:57)
--- NOTE | 2020-11-24 18:09 | PC.NURSE ---
This patient, Yennifer Baer, was transferred to [ [address] [place] [address]] on 11/24/20 at 1809. Personal belongings sent with patient. Report given to [ brie rn]. Appropriate documentation sent with patient.
[2020-11-24 20:55] LABS: Glucose Point of Care 183 (65-105)
[2020-11-24] MEDS: INSULIN GLARGINE (*BKC) 100 UNITS/ML 10 UNITS SUB-Q (21:34)
[2020-11-24 22:40] LABS: Glucose Point of Care 227 (65-105)
[2020-11-24] MEDS: PANTOPRAZOLE SODIUM IV 40 MG VIAL IV PUSH (22:59)
[2020-11-25] VITALS (8 sets, daily range): BP systolic 92–113; BP diastolic 44–73; PULSE 58–101; RESP 18–20; TEMP 36.1–36.8; O2SAT 94–98
[2020-11-25 00:33] LABS: Glucose Point of Care 180 (65-105)
[2020-11-25 06:12] LABS: Basophils Percent Auto 0.3 % (0.2-1.2); Eosinophils Absolute Auto 0.1 K/mm3 (0-0.3); Eosinophils Percent Auto 0.7 % (0-4.4); Hematocrit 22.7 % (37.0-47.0); Hemoglobin 7.3 g/dL (12.0-15.0); Immature Granulocyte Absolute 0.14 K/mm3 (0.00-0.031); Immature Reticulocyte Fraction 25.4 % (3.0-15.9); Lymphocytes Absolute Auto 1.27 K/mm3 (0.9-3.2); Lymphocytes Percent Auto 8.6 % (18.3-44.2); Mean Corpuscular HGB Conc 32.2 g/dl (32-36); Mean Corpuscular Hemoglobin 29.1 pg (26-34); Mean Corpuscular Volume 90.4 fl (80-100); Mean Platelet Volume 10.3 fl (7.4-10.4); Monocytes Percent Auto 6.4 % (2.6-8.5); Neutrophils Absolute Auto 12.2 K/mm3 (1.3-6.7); Platelet Count Result 271 k/mm3 (150-375); Red Blood Count 2.51 M/mm3 (4.2-5.4); Red Cell Distribution Width 14.4 % (11.5-14.5); Reticulocyte Hemoglobin Conten 32.6 pg (28.2-35.7); Reticulocyte Percent 3.52 % (0.7-4.3); Reticulocytes Absolute 0.09 B/L (32.2-175.7); White Blood Count 14.7 K/mm3 (4.5-10.0)
[2020-11-25 06:20] LABS: Alanine Aminotransferase 10 U/L (4-35); Alkaline Phosphatase 79 U/L (38-126); Anion Gap -1 mmol/L (8-16); Aspartate Amino Transferase 22 U/L (14-36); Bilirubin,Total 0.3 mg/dL (0.2-1.3); Blood Urea Nitrogen 17 mg/dL (7-17); Calcium 7.4 mg/dL (8.4-10.2); Carbon Dioxide 31 mmol/L (22-30); Chloride 99 mmol/L (98-107); Estimated CRCL calculation 36 ml/min; Estimated Glomerular Filt Rate 60; Glucose 196 mg/dL (65-105); Magnesium 1.4 mg/dL (1.6-2.3); Phosphorus 2.2 mg/dL (2.5-4.5); Potassium 4.2 mmol/L (3.4-5.0); Sodium 129 mmol/L (137-145)
[2020-11-25] MEDS: CENTRAL LINE FLUSH 10 ML IV PUSH ×4 (06:29→20:59)
[2020-11-25 06:31] LABS: Iron < 10 ug/dL (37-170)
[2020-11-25 06:42] LABS: Glucose Point of Care 187 (65-105)
[2020-11-25 06:43] LABS: Percent Iron Saturation < 6 % (20-50)
--- NOTE | 2020-11-25 08:05 | WPDGIPROGNO ---
Progress Note: A&P Assessment and Plan (1) Melena: Code(s): K92.1 - Melena Status: Acute Assessment and Plan: Patient admitted with a history of coffee-ground emesis and heme-positive melenic stools. This is most consistent with upper GI bleeding. Currently no evidence for active blood loss however she has modestly anemic. Plan to continue proton pump inhibitor therapy. EGD is suggested but will be deferred till she is more stable. Currently not oriented proceeding with EGD would be extremely high risk at this time. Would agree with holding aspirin and anticoagulation at present. (2) Abnormal abdominal CT scan: Code(s): R93.5 - Abnormal findings on diagnostic imaging of other abdominal regions, including retroperitoneum Status: Acute Assessment and Plan: CT scan suggests gallstones. There is a concern over possible pancreatitis. Clinically she has no abdominal pain to correlate with this and her lipase is normal. Would suggest observation at the present time period (3) Pneumonia: Qualifiers: Pneumonia type: due to unspecified organism Laterality: left Lung location: lower lobe of lung Qualified Code(s): J18.9 - Pneumonia, unspecified organism Code(s): J18.9 - Pneumonia, unspecified organism Status: Acute Assessment and Plan: Patient's for ultimate have pneumonia by her x-ray exam period was in the ICU yesterday with septic shock. Currently being managed by primary care service. (4) Confusion: Code(s): R41.0 - Disorientation, unspecified Status: Acute Assessment and Plan: Patient quite confused this morning. Will defer invasive testing such as EGD until she is more stable. No active bleeding described. Etiology for confusion unclear. Previous notes suggest she was more alert previously. Subjective Date/time seen: 11/25/20 08:05 Patient seen in consultation by Dr. Mario sharma over the weekend. No additional bleeding reported by nursing service. No additional vomiting. Patient very confused this morning not oriented at all. She denies abdominal pain. No knowledge of why she is in the hospital. Patient was in the ICU yesterday for septic shock. Now on the floor. Nursing staff reports that she is clinically stable at present. Review of Systems Review of Systems: ROS unobtainable: Yes unobtainable due to mental status Exam Narrative: Exam Narrative: Physical exam patient is not oriented. HEENT exam reveals no scleral icterus plan. Lungs are clear to auscultation and percussion. Abdomen bowel sounds are present soft nontender no obvious organomegaly. Extremities are without clubbing cyanosis or edema. Rectal exam deferred at present. Objective Data Vital Signs Vital Signs: Vital Signs - 24 hr 11/24/20 10:00 11/24/20 10:22 11/24/20 11:52 Temperature Pulse Rate 105 H Respiratory Rate 20 Blood Pressure 113/63 Pulse Oximetry 99 98 97 11/24/20 12:00 11/24/20 14:00 11/24/20 16:00 Temperature Pulse Rate 100 95 93 Respiratory Rate 24 H 20 18 Blood Pressure 99/51 L 99/48 L 101/61 Pulse Oximetry 100 97 97 11/24/20 20:00 11/25/20 00:00 11/25/20 04:00 Temperature 96.3 F L 97.9 F 98.1 F Pulse Rate 98 101 H 100 Respiratory Rate 20 18 20 Blood Pressure 104/52 L 113/62 108/58 L Pulse Oximetry 92 97 95 Intake/Output Intake/Output: Intake & Output 11/22/20 11/23/20 11/24/20 11/25/20 23:59 23:59 23:59 23:59 Intake Total 4540 2240 300 Output Total 50 100 150 Balance 4490 2140 150 Meds/Results Medications: Active Medications Generic Name Dose Route Start Last Admin Trade Name Freq PRN Reason Stop Dose Admin Dextrose 12.5 gm 11/23/20 02:55 Dextrose 50% 25 Gm/50 Ml Syringe IV PUSH PRN PRN Hypoglycemia Protocol Glucagon 1 mg 11/23/20 02:55 Glucagon For Inj 1 Mg Vial IM PRN PRN Hypoglycemia Protocol Ceftriaxone Sodium/Dextrose 1 gm in 50 mls @ 10
[2020-11-25] MEDS: MAGNESIUM SULF 2 GM/WATER 50ML 2 GM/50 ML BAG IVPB (09:57)
[2020-11-25] MEDS: LACTATED RINGERS 1,000 ML 75 ML IV CONT (09:58)
[2020-11-25] MEDS: PANTOPRAZOLE SODIUM IV 40 MG VIAL IV PUSH ×2 (09:59→20:59)
[2020-11-25 12:00] LABS: Glucose Point of Care 163 (65-105)
[2020-11-25 12:05] LABS: Hematocrit 24.8 % (37.0-47.0); Hemoglobin 8.1 g/dL (12.0-15.0)
[2020-11-25 12:20] LABS: Lipase 208 U/L (23-300)
--- NOTE | 2020-11-25 14:56 | PM.IMPN ---
Progress Note: A&P Assessment and Plan (1) Septic shock: Code(s): A41.9 - Sepsis, unspecified organism; R65.21 - Severe sepsis with septic shock Status: Acute Assessment and Plan: Off pressors now, PNA probable source. WBC better and no fevers. UCx negative. BCx NGTD. Continue IV antibiotics. BP soft at times but stable. Stop IV fluids and monitor. (2) Pneumonia: Qualifiers: Laterality: left Lung location: lower lobe of lung Pneumonia type: due to unspecified organism Qualified Code(s): J18.9 - Pneumonia, unspecified organism Code(s): J18.9 - Pneumonia, unspecified organism Status: Acute Assessment and Plan: CXR showing bilateral LL infiltrates. CLinically improved. Continue IV antibiotics ceftriaxone and azithromyacin D#3 , scheduled bronchodilators. wbc improving. BCx NGTD (3) Pancreatitis: Qualifiers: Acute pancreatitis complication: unspecified Chronicity: acute Pancreatitis type: unspecified pancreatitis type Qualified Code(s): K85.90 - Acute pancreatitis without necrosis or infection, unspecified Code(s): K85.90 - Acute pancreatitis without necrosis or infection, unspecified Status: Acute Assessment and Plan: CT evidence of pancreatitis but lipase normal. Repeat lipase normal. Exam benign and tolerating advance in diet. (4) GI bleed: Qualifiers: GI bleed type/associated pathology: unspecified gastrointestinal hemorrhage type Qualified Code(s): K92.2 - Gastrointestinal hemorrhage, unspecified Code(s): K92.2 - Gastrointestinal hemorrhage, unspecified Status: Acute Assessment and Plan: Appears to be an upper GI bleed. . Monitor H/H, transfuse prn. Continue Protonix . GI has been consulted and possible EGD. (5) Hypokalemia: Code(s): E87.6 - Hypokalemia Status: Acute Assessment and Plan: K+ 2.8 on admission and was replaced. Potassium normal now. Follow. (6) Leukocytosis: Qualifiers: Leukocytosis type: unspecified Qualified Code(s): D72.829 - Elevated white blood cell count, unspecified Code(s): D72.829 - Elevated white blood cell count, unspecified Status: Acute Assessment and Plan: Secondary to acute sepsis and pneumonia. WBC trending down. Monitor CBCd. (7) Normocytic anemia: Code(s): D64.9 - Anemia, unspecified Status: Acute Assessment and Plan: Acute vs. Chronic. Hgb 10.2 on admssion but Hgb dropped to 7-8 range and stable. The patient appears to be having a GI bleed. Iron studies consistent with anemia of chronic disease. Monitor H/H, transfuse prn. (8) Hyponatremia: Code(s): E87.1 - Hypo-osmolality and hyponatremia Status: Acute Assessment and Plan: Na 125 on admission. May be secondary to acute dehydration. Na 129 today. Past records show Na typically 125-130. Urine Na 42 so not all dehydration. Monitor serum sodium. (9) Acute renal failure: Qualifiers: Acute renal failure type: with other specified pathological lesion Qualified Code(s): N17.8 - Other acute kidney failure Code(s): N17.9 - Acute kidney failure, unspecified Status: Acute Assessment and Plan: Likely secondary to hypoperfusion from septic shock. Cr 1.6 on admission but resolved with normal Cr now. (10) Abnormal glucose: Code(s): R73.09 - Other abnormal glucose Status: Acute Assessment and Plan: A1c 8.8. The patient's blood glucose was reviewed on 11/25 Glucose remains most likely well controlled. Continue AccuCheks covering with sliding scale. Hypoglycemia protocol available as needed. Continue current medications. Subjective Date/time seen: 11/25/20 14:56 Interval history: Date of visit 11/25. 85-year-old demented female admitted from the alf after coffee-ground emesis and confusion. Presented here hypotensive with leuko
[2020-11-25 16:16] LABS: Glucose Point of Care 152 (65-105)
[2020-11-25] MEDS: POTASSIUM/PHOSPHORUS/SODIUM 1.5 GM PACKET 1 PACKET PO (17:41)
[2020-11-25] MEDS: CENTRAL LINE FLUSH 20 ML IV PUSH (17:50)
[2020-11-25] MEDS: INSULIN GLARGINE (*BKC) 100 UNITS/ML 10 UNITS SUB-Q (20:57)
[2020-11-25 22:03] LABS: Glucose Point of Care 161 (65-105)
[2020-11-25 23:17] LABS: Hematocrit 27.6 % (37.0-47.0); Hemoglobin 8.8 g/dL (12.0-15.0)
[2020-11-25 23:51] LABS: Glucose Point of Care 146 (65-105)
[2020-11-26] VITALS (19 sets, daily range): BP systolic 66–113; BP diastolic 24–78; PULSE 90–111; RESP 16–24; TEMP 35.8–36.8; O2SAT 94–100
[2020-11-26 05:32] LABS: Basophils Percent Auto 0.3 % (0.2-1.2); Eosinophils Absolute Auto 0.1 K/mm3 (0-0.3); Eosinophils Percent Auto 0.9 % (0-4.4); Hematocrit 23.7 % (37.0-47.0); Hemoglobin 7.7 g/dL (12.0-15.0); Immature Granulocyte Absolute 0.13 K/mm3 (0.00-0.031); Immature Granulocyte Percent A 1.1 % (0-0.5); Lymphocytes Absolute Auto 1.16 K/mm3 (0.9-3.2); Lymphocytes Percent Auto 9.9 % (18.3-44.2); Mean Corpuscular HGB Conc 32.5 g/dl (32-36); Mean Corpuscular Hemoglobin 29.1 pg (26-34); Mean Corpuscular Volume 89.4 fl (80-100); Mean Platelet Volume 10.2 fl (7.4-10.4); Monocytes Absolute Auto 0.9 K/mm3 (0.1-0.6); Monocytes Percent Auto 7.7 % (2.6-8.5); Neutrophils Absolute Auto 9.4 K/mm3 (1.3-6.7); Neutrophils Percent Auto 80.1 % (45.5-73.1); Platelet Count Result 333 k/mm3 (150-375); Red Blood Count 2.65 M/mm3 (4.2-5.4); Red Cell Distribution Width 14.2 % (11.5-14.5); White Blood Count 11.7 K/mm3 (4.5-10.0)
[2020-11-26] MEDS: CENTRAL LINE FLUSH 20 ML IV PUSH (05:38)
[2020-11-26] MEDS: CENTRAL LINE FLUSH 10 ML IV PUSH ×3 (05:39→20:57)
[2020-11-26 05:46] LABS: Alanine Aminotransferase 11 U/L (4-35); Albumin Level 2.1 g/dL (3.5-5.1); Alkaline Phosphatase 80 U/L (38-126); Anion Gap 3 mmol/L (8-16); Aspartate Amino Transferase 22 U/L (14-36); Bilirubin,Total 0.3 mg/dL (0.2-1.3); Blood Urea Nitrogen 12 mg/dL (7-17); Calcium 7.4 mg/dL (8.4-10.2); Carbon Dioxide 29 mmol/L (22-30); Chloride 98 mmol/L (98-107); Estimated CRCL calculation 40 ml/min; Estimated Glomerular Filt Rate > 60; Glucose 156 mg/dL (65-105); Magnesium 1.7 mg/dL (1.6-2.3); Phosphorus 3.5 mg/dL (2.5-4.5); Sodium 130 mmol/L (137-145)
[2020-11-26 06:13] LABS: Glucose Point of Care 152 (65-105)
--- NOTE | 2020-11-26 08:10 | PC.NURSE ---
call to pt's son Jevon to obtain consent for EGD, message left
[2020-11-26] MEDS: PANTOPRAZOLE SODIUM IV 40 MG VIAL IV PUSH (09:08)
--- NOTE | 2020-11-26 09:35 | PC.NURSE ---
second call to marisol Escoto for consent for EGD, message left to cell phone this time
--- NOTE | 2020-11-26 09:55 | PC.NURSE ---
marisol Escoto returned call for consent for EGD
--- NOTE | 2020-11-26 11:13 | PC.NURSE ---
pt to GI lab via jean carlos
[2020-11-26] MEDS: LACTATED RINGERS 1,000 ML 150 ML IV CONT (11:25)
[2020-11-26 11:34] LABS: Glucose Point of Care 133 (65-105)
--- NOTE | 2020-11-26 12:45 | PM.IMPN ---
Progress Note: A&P Assessment and Plan (1) Septic shock: Code(s): A41.9 - Sepsis, unspecified organism; R65.21 - Severe sepsis with septic shock Status: Acute Assessment and Plan: Off pressors now. PNA probable source. WBC better and no fevers. UCx negative. BCx NGTD. Continue IV antibiotics. Blood pressure was stable yesterday and IV fluids were stopped. Pressure okay this morning but has dropped during the procedure. She received 3 doses of phenylephrine. Systolic blood pressure climbed to the 80s and she was transferred back to the floor. Check blood pressure and follow closely for stability. (2) Pneumonia: Qualifiers: Laterality: left Lung location: lower lobe of lung Pneumonia type: due to unspecified organism Qualified Code(s): J18.9 - Pneumonia, unspecified organism Code(s): J18.9 - Pneumonia, unspecified organism Status: Acute Assessment and Plan: CXR showing bilateral LL infiltrates. Clinically improved. WBC improving and no fevers. BCx NGTD. Continue IV antibiotics ceftriaxone and azithromycin D#4. Check bedside swallow evaluation. (3) Pancreatitis: Qualifiers: Acute pancreatitis complication: unspecified Chronicity: acute Pancreatitis type: unspecified pancreatitis type Qualified Code(s): K85.90 - Acute pancreatitis without necrosis or infection, unspecified Code(s): K85.90 - Acute pancreatitis without necrosis or infection, unspecified Status: Acute Assessment and Plan: CT evidence of pancreatitis but lipase normal. Repeat lipase normal. Passed gallstone? Exam benign and tolerating advance in diet. (4) GI bleed: Qualifiers: GI bleed type/associated pathology: unspecified gastrointestinal hemorrhage type Qualified Code(s): K92.2 - Gastrointestinal hemorrhage, unspecified Code(s): K92.2 - Gastrointestinal hemorrhage, unspecified Status: Acute Assessment and Plan: Concern for upper GI bleed. EGD performed today showing severe ulcerative esophagitis secondary to severe acid reflux. This is most likely the etiology of her GI bleed. Hemoglobin stable in the 7-8 range. Continue to monitor H/H and transfuse prn. Continue Protonix b.i.d.. Diet started as a bland diet. (5) Hypokalemia: Code(s): E87.6 - Hypokalemia Status: Acute Assessment and Plan: K+ 2.8 on admission and was replaced. Potassium normal now. Follow. (6) Leukocytosis: Qualifiers: Leukocytosis type: unspecified Qualified Code(s): D72.829 - Elevated white blood cell count, unspecified Code(s): D72.829 - Elevated white blood cell count, unspecified Status: Acute Assessment and Plan: Secondary to acute sepsis and pneumonia. WBC trending down still. Monitor CBCd. (7) Normocytic anemia: Code(s): D64.9 - Anemia, unspecified Status: Acute Assessment and Plan: Acute vs. Chronic. Hgb 10.2 on admssion but Hgb dropped to 7-8 range and stable. The patient appears to be having a GI bleed. Iron studies consistent with anemia of chronic disease. Monitor H/H, transfuse prn. (8) Hyponatremia: Code(s): E87.1 - Hypo-osmolality and hyponatremia Status: Acute Assessment and Plan: Na 125 on admission. May be secondary to acute dehydration. Na 130 today. Past records show Na typically 125-130. Urine Na 42 so not all dehydration. Monitor serum sodium. (9) Acute renal failure: Qualifiers: Acute renal failure type: with other specified pathological lesion Qualified Code(s): N17.8 - Other acute kidney failure Code(s): N17.9 - Acute kidney failure, unspecified Status: Acute Assessment and Plan: Likely secondary to hypoperfusion from septic shock. Cr 1.6 on admission but resolved with normal Cr now. Continue to monitor. (10) Abnormal glucose: Code(s): R73.09 - Other abnormal gl
[2020-11-26 14:11] LABS: Glucose Point of Care 113 (65-105)
--- NOTE | 2020-11-26 15:00 | PC.NURSE ---
On 11/26/20, the student, [TATIANA MONTANO ], provided care and completed [facility] documentation on this patient. I have reviewed the student's documentation and agree with the findings.
--- NOTE | 2020-11-26 15:55 | PCSTNOTE ---
The patient evaluation was not able to be completed on 11/26/20 due to patient in procedure when attempt was made. Will plan to complete evaluation tomorrow morning.
[2020-11-26 16:12] LABS: Creatinine Urine 33.8 mg/dL; Total Protein Urine Random 29 mg/dL; Ur Ttl Prot Creatinine Ratio 0.86 mg/mg (0-0.20)
[2020-11-26 18:58] LABS: Glucose Point of Care 102 (65-105)
[2020-11-26 19:18] LABS: SARS-CoV-2 RNA PCR Negative
[2020-11-26] MEDS: INSULIN GLARGINE (*BKC) 100 UNITS/ML 10 UNITS SUB-Q (20:57)
[2020-11-26] MEDS: PANTOPRAZOLE 40 MG TABLET PO (20:57)
[2020-11-26 21:04] LABS: Pneumococcal Antigen Urine Not Detected (Not Detected)
[2020-11-26 21:18] LABS: Glucose Point of Care 101 (65-105)
[2020-11-27 03:14] VITALS: BP 101/50; PULSE 98; RESP 18; TEMP 36; O2SAT 99
[2020-11-27 05:35] LABS: Basophils Percent Auto 0.4 % (0.2-1.2); Eosinophils Absolute Auto 0.1 K/mm3 (0-0.3); Hemoglobin 7.3 g/dL (12.0-15.0); Immature Granulocyte Absolute 0.09 K/mm3 (0.00-0.031); Lymphocytes Absolute Auto 1.17 K/mm3 (0.9-3.2); Lymphocytes Percent Auto 12.6 % (18.3-44.2); Mean Corpuscular HGB Conc 31.7 g/dl (32-36); Mean Corpuscular Hemoglobin 29.2 pg (26-34); Monocytes Absolute Auto 0.8 K/mm3 (0.1-0.6); Monocytes Percent Auto 8.7 % (2.6-8.5); Neutrophils Absolute Auto 7.1 K/mm3 (1.3-6.7); Neutrophils Percent Auto 76.3 % (45.5-73.1); Platelet Count Result 326 k/mm3 (150-375); Red Cell Distribution Width 14.2 % (11.5-14.5); White Blood Count 9.3 K/mm3 (4.5-10.0)
[2020-11-27 05:38] LABS: Osmolality, Urine 440 mOsm/kg (50-1200)
[2020-11-27] MEDS: CENTRAL LINE FLUSH 10 ML IV PUSH ×2 (05:48→13:11)
[2020-11-27] MEDS: CENTRAL LINE FLUSH 20 ML IV PUSH (05:49)
[2020-11-27 05:50] LABS: Anion Gap 0 mmol/L (8-16); Blood Urea Nitrogen 9 mg/dL (7-17); Calcium 7.2 mg/dL (8.4-10.2); Carbon Dioxide 30 mmol/L (22-30); Chloride 101 mmol/L (98-107); Estimated CRCL calculation 36 ml/min; Estimated Glomerular Filt Rate 60; Glucose 101 mg/dL (65-105); Potassium 3.7 mmol/L (3.4-5.0); Sodium 131 mmol/L (137-145)
--- NOTE | 2020-11-27 07:28 | WPDANESPN ---
Anes - Prog Note Post-Op Date/Time: 11/27/20 07:28 Cardiovascular status: normal Respiratory status: normal Airway patency: baseline Mental status: baseline Post-Op hydration status: normal Vital Signs: Last Vital Signs Temp 36.0 C L 11/27/20 03:14 Pulse 98 11/27/20 03:14 Resp 18 11/27/20 03:14 BP 101/50 L 11/27/20 03:14 Pulse Ox 99 11/27/20 03:14 Pain Score (VAS): 1 I/O: Intake & Output 11/26/20 11/26/20 11/27/20 15:59 23:59 07:59 Intake Total 400 50 240 Balance 400 50 240 Laboratory Tests 11/27/20 05:00 11/27/20 05:00 11/24/20 11/26/20 11/26/20 03:41 00:48 11:30 WBC RBC Hgb Hct MCV MCH MCHC RDW Plt Count MPV Immature Gran % (Auto) Neut % (Auto) Lymph % (Auto) [place] % (Auto) Eos % (Auto) Baso % (Auto) Lymph # (Auto) [place] # (Auto) Eos # (Auto) Baso # (Auto) Abs Immat Gran (auto) Absolute Neuts (auto) Absolute Nucleated RBC Nucleated RBC % Sodium Potassium Chloride Carbon Dioxide Anion Gap BUN Creatinine Estim Creat Clear Calc Estimated GFR Glucose POC Capillary Glucose 133 H Calcium Urine Osmolality 440 U Random Total Protein Urine Creatinine Protein/Creat Ratio 2 SARS-CoV-2 RNA (RT-PCR) Negative Urine Pneumococcal Ag Not detected 11/26/20 11/26/20 11/26/20 14:07 15:45 17:59 WBC RBC Hgb Hct MCV MCH MCHC RDW Plt Count MPV Immature Gran % (Auto) Neut % (Auto) Lymph % (Auto) [place] % (Auto) Eos % (Auto) Baso % (Auto) Lymph # (Auto) [place] # (Auto) Eos # (Auto) Baso # (Auto) Abs Immat Gran (auto) Absolute Neuts (auto) Absolute Nucleated RBC Nucleated RBC % Sodium Potassium Chloride Carbon Dioxide Anion Gap BUN Creatinine Estim Creat Clear Calc Estimated GFR Glucose POC Capillary Glucose 113 H 102 Calcium Urine Osmolality U Random Total Protein 29 Urine Creatinine 33.8 Protein/Creat Ratio 2 0.86 H SARS-CoV-2 RNA (RT-PCR) Urine Pneumococcal Ag 11/26/20 11/27/20 11/27/20 20:54 05:00 05:00 WBC 9.3 RBC 2.50 L Hgb 7.3 L Hct 23.0 L MCV 92.0 MCH 29.2 MCHC 31.7 L RDW 14.2 Plt Count 326 MPV 10.0 Immature Gran % (Auto) 1.0 H Neut % (Auto) 76.3 H Lymph % (Auto) 12.6 L [place] % (Auto) 8.7 H Eos % (Auto) 1.0 Baso % (Auto) 0.4 Lymph # (Auto) 1.17 [place] # (Auto) 0.8 H Eos # (Auto) 0.1 Baso # (Auto) 0.0 Abs Immat Gran (auto) 0.09 H Absolute Neuts (auto) 7.1 H Absolute Nucleated RBC 0.0 Nucleated RBC % 0.0 Sodium 131 L Potassium 3.7 Chloride 101 Carbon Dioxide 30 Anion Gap 0 L BUN 9 Creatinine 0.90 Estim Creat Clear Calc 36 Estimated GFR 60 Glucose 101 POC Capillary Glucose 101 Calcium 7.2 L Urine Osmolality U Random Total Protein Urine Creatinine Protein/Creat Ratio 2 SARS-CoV-2 RNA (RT-PCR) Urine Pneumococcal Ag Post-procedural complaints: none Patient Feedback: Patient satisfied with anesthetic care.
[2020-11-27 08:09] LABS: Glucose Point of Care 85 (65-105)
--- NOTE | 2020-11-27 08:34 | WPDGIPROGNO ---
Progress Note: A&P Assessment and Plan (1) Ulcerative esophagitis: Code(s): K22.10 - Ulcer of esophagus without bleeding Status: Acute Assessment and Plan: Severe ulcerative esophagitis identified by endoscopy yesterday. Likely secondary to acid reflux. Suggested bland diet and long-term proton pump inhibitor therapy such as Protonix suggested. Likely she do will do best with a bland diet. This is most likely explanation for recent blood loss. (2) Pancreatitis: Qualifiers: Chronicity: acute Pancreatitis type: unspecified pancreatitis type Acute pancreatitis complication: unspecified Qualified Code(s): K85.90 - Acute pancreatitis without necrosis or infection, unspecified Code(s): K85.90 - Acute pancreatitis without necrosis or infection, unspecified Status: Acute Assessment and Plan: CT scan suggest pancreatitis. However patient has no abdominal pain lipase is normal raising this is a questionable finding. Would suggest advancing diet as tolerated. We can consider follow-up CAT scan in 3 months if necessary. (3) Pneumonia: Qualifiers: Pneumonia type: due to unspecified organism Laterality: left Lung location: lower lobe of lung Qualified Code(s): J18.9 - Pneumonia, unspecified organism Code(s): J18.9 - Pneumonia, unspecified organism Status: Acute (4) Confusion: Code(s): R41.0 - Disorientation, unspecified Status: Acute Subjective Date/time seen: 11/27/20 08:34 Patient remains lethargic. Offers no specific complaints. No vomiting or pain reported. Review of Systems Review of Systems: ROS unobtainable: Yes unobtainable due to mental status Exam Narrative: Exam Narrative: Physical exam reveals patient be alert and anicteric. Lungs are clear. Heart without murmur. Abdomen bowel sounds present soft nontender with no organomegaly. Objective Data Vital Signs Vital Signs: Vital Signs - 24 hr 11/26/20 08:56 11/26/20 09:31 11/26/20 10:00 Temperature 97.8 F 97.1 F L Pulse Rate 98 96 Respiratory Rate 16 20 Blood Pressure 109/46 L 106/52 L Pulse Oximetry 98 98 95 11/26/20 11:21 11/26/20 12:28 11/26/20 12:35 Temperature 96.5 F L Pulse Rate 95 92 95 Respiratory Rate 21 H 23 H 24 H Blood Pressure 92/49 L 86/24 L 66/31 L Pulse Oximetry 100 94 96 11/26/20 12:40 11/26/20 12:50 11/26/20 12:55 Temperature Pulse Rate 90 90 90 Respiratory Rate 21 H 21 H 21 H Blood Pressure 98/46 L 88/34 L 82/42 L Pulse Oximetry 100 96 100 11/26/20 13:02 11/26/20 14:00 11/26/20 14:19 Temperature 98.3 F 97.1 F L Pulse Rate 93 93 92 Respiratory Rate 22 H 18 16 Blood Pressure 89/47 L 94/46 L 95/54 L Pulse Oximetry 99 100 98 11/26/20 18:00 11/26/20 19:14 11/26/20 20:00 Temperature 97.5 F L 97.1 F L Pulse Rate 104 H 111 H Respiratory Rate 16 18 Blood Pressure 99/78 L 109/47 L Pulse Oximetry 100 96 96 11/26/20 23:14 11/27/20 03:14 Temperature 97.9 F 96.8 F L Pulse Rate 111 H 98 Respiratory Rate 22 H 18 Blood Pressure 98/42 L 101/50 L Pulse Oximetry 95 99 Intake/Output Intake/Output: Intake & Output 11/24/20 11/25/20 11/26/20 11/27/20 23:59 23:59 23:59 23:59 Intake Total 2240 3340 1170 240 Output Total 100 150 200 Balance 2140 3190 970 240 Meds/Results Medications: Active Medications Generic Name Dose Route Start Last Admin Trade Name Freq PRN Reason Stop Dose Admin Dextrose 12.5 gm 11/23/20 02:55 Dextrose 50% 25 Gm/50 Ml Syringe IV PUSH PRN PRN Hypoglycemia Protocol Glucagon 1 mg 11/23/20 02:55 Glucagon For Inj 1 Mg Vial IM PRN PRN Hypoglycemia Protocol Ceftriaxone Sodium/Dextrose 1 gm in 50 mls @ 100 mls/hr 11/24/20 01:00 11/27/20 01:30 Rocephin 1 Gm/D5w 50 Ml IVPB Infused Q24H MIKE Infusion Azithromycin 500 mg in 250 mls @ 250 mls/hr 11/24/20 02:00 11/27/20 02:11 Zithromax IVPB 200 mls/hr Q24H MIKE Administrati
[2020-11-27] MEDS: PANTOPRAZOLE 40 MG TABLET PO ×2 (08:47→20:52)
--- NOTE | 2020-11-27 08:54 | PCSTNOTE ---
Please refer to the Bedside Swallow Evaluation in the EMR. Please note, silent aspiration cannot be ruled out at bedside.
[2020-11-27 09:16] VITALS: BMI 10.0
[2020-11-27 10:00] VITALS: BP 92/48; PULSE 104; RESP 16; TEMP 37.1; O2SAT 98
--- NOTE | 2020-11-27 10:07 | PCOTNOTE ---
Attempted to see Patient for her OT treatment session this A.M. Patient is out of the room, down having an ultrasound. Will check back at a later time.
[2020-11-27 11:00] VITALS: BMI 25.0
[2020-11-27 12:06] LABS: Glucose Point of Care 137 (65-105)
[2020-11-27] MEDS: NEOMYCIN/POLYMYXIN/BACITRACIN OINTMENT PACKET 1 PACKET (13:11)
[2020-11-27 14:00] VITALS: BP 115/53; PULSE 95; RESP 16; TEMP 36.5; O2SAT 97
--- NOTE | 2020-11-27 14:06 | PM.DS ---
DS: Admitting Diagnosis Admitting Diagnosis Admitting Diagnosis: Hypotension and coffee-ground emesis. DS: Discharge Diagnosis Discharge Diagnosis (1) Septic shock: Code(s): A41.9 - Sepsis, unspecified organism; R65.21 - Severe sepsis with septic shock Status: Acute Assessment and Plan: Patient was hypotensive on admission. She was started on pressors and admitted to the ICU. She was able to be weaned off pressors. PNA probable source. WBC elevated at 25,000 but this has normalized now. No fevers. UCx negative. BCx NGTD. Treated with IV antibiotics. Blood pressure was stable and she was transferred to the medical floor. She tolerated being off of IV fluids. Patient did have a drop in her blood pressure during the EGD procedure. She received 3 doses of phenylephrine. Systolic blood pressure climbed to the 80s. She was monitor closely and her blood pressure has improved. Systolic blood pressure running in the 90-100 range. Suspect this is more chronic. (2) Pneumonia: Qualifiers: Pneumonia type: due to unspecified organism Laterality: left Lung location: lower lobe of lung Qualified Code(s): J18.9 - Pneumonia, unspecified organism Code(s): J18.9 - Pneumonia, unspecified organism Status: Acute Assessment and Plan: CXR on admission showing bilateral LL infiltrates. Clinically improved. WBC normalized and no fevers. BCx NGTD. Bedside swallow evaluation was normal. COVID negative. Lower extremity Dopplers negative for DVT. Repeat chest x-ray showed small amount of left lower lobe pneumonia which was improving. (3) Pancreatitis: Qualifiers: Chronicity: acute Pancreatitis type: unspecified pancreatitis type Acute pancreatitis complication: unspecified Qualified Code(s): K85.90 - Acute pancreatitis without necrosis or infection, unspecified Code(s): K85.90 - Acute pancreatitis without necrosis or infection, unspecified Status: Acute Assessment and Plan: CT evidence of pancreatitis but lipase normal. Repeat lipase normal. Passed gallstone? Exam benign and tolerating advance in diet. (4) GI bleed: Qualifiers: GI bleed type/associated pathology: unspecified gastrointestinal hemorrhage type Qualified Code(s): K92.2 - Gastrointestinal hemorrhage, unspecified Code(s): K92.2 - Gastrointestinal hemorrhage, unspecified Status: Acute Assessment and Plan: Concern for upper GI bleed. EGD performed 11/26/20 showing severe ulcerative esophagitis secondary to severe acid reflux. This is most likely the etiology of her GI bleed. Hemoglobin stable in the 7-8 range. She did not require a transfusion. Treated with Protonix b.i.d.. Diet started as a bland diet. (5) Hypokalemia: Code(s): E87.6 - Hypokalemia Status: Acute Assessment and Plan: K+ 2.8 on admission and was replaced. Potassium normal and remained normal (6) Leukocytosis: Qualifiers: Leukocytosis type: unspecified Qualified Code(s): D72.829 - Elevated white blood cell count, unspecified Code(s): D72.829 - Elevated white blood cell count, unspecified Status: Acute Assessment and Plan: WBC 43507 on admission. Secondary to acute sepsis and pneumonia. WBC normal now. (7) Normocytic anemia: Code(s): D64.9 - Anemia, unspecified Status: Acute Assessment and Plan: Acute on Chronic anemia. Hgb 10.2 on admission but Hgb dropped to 7-8 range and stable. She did not require a transfusion. Anemia related to GI bleed. Iron studies consistent with anemia of chronic disease. (8) Hyponatremia: Code(s): E87.1 - Hypo-osmolality and hyponatremia Status: Acute Assessment and Plan: Na 125 on admission. May be secondary to acute dehydration. Na 131 today. Past records show Na typically 125-130. Urine Na 42 so not all dehydration. Suspect patient at baseline.
[2020-11-27 17:44] VITALS: BP 118/59; PULSE 104; RESP 18; TEMP 37.2; O2SAT 95
[2020-11-27 17:57] LABS: Glucose Point of Care 115 (65-105)
[2020-11-27 20:38] VITALS: BP 122/48; PULSE 58; RESP 16; TEMP 36.8; O2SAT 100
[2020-11-27] MEDS: INSULIN GLARGINE (*BKC) 100 UNITS/ML 10 UNITS SUB-Q (20:59)
[2020-11-27 21:38] LABS: Glucose Point of Care 102 (65-105)
== END 2020-11-28 01:00 | DRG 871 ==
LOC: ANHED 11-23 04:19 → ANHICU 11-24 03:21 → ANH2MED 11-24 20:45 → ANHICU 12-02 16:12
PROVIDERS: Internal Medicine; Internal Medicine Critical Care Medicine; Internal Medicine Gastroenterology; Admitting Provider Family Medicine; Emergency Provider Emergency Medicine; PCP Family Medicine; Visit Provider Internal Medicine
PROC: 0DJ08ZZ Inspection of Upper Intestinal Tract, Via Natural or Artificial Opening Endoscopic (ICD-10-PCS; CPT 43235; principal; 2020-11-26 11:30)
DX: A41.9 Sepsis, unspecified organism (principal); J18.9 Pneumonia, unspecified organism; R65.21 Severe sepsis with septic shock; K85.90 Acute pancreatitis without necrosis or infection, unspecified; K22.11 Ulcer of esophagus with bleeding; E87.1 Hypo-osmolality and hyponatremia; N17.8 Other acute kidney failure; D63.8 Anemia in other chronic diseases classified elsewhere; Z20.822 Contact with and (suspected) exposure to COVID-19; R41.0 Disorientation, unspecified; F03.90 Unspecified dementia, unspecified severity, without behavioral disturbance, psychotic disturbance, mood disturbance, and anxiety; E11.9 Type 2 diabetes mellitus without complications; E87.6 Hypokalemia; Z93.3 Colostomy status
CPT/HCPCS: 36415; 36556; 51701; 71045; 74176; 80048; 80053; 80076; 81001; 82570; 82607; 82728; 82948; 83036; 83540; 83550; 83605; 83690; 83735; 83935; 84100; 84156; 84300; 84443; 85014; 85018; 85025; 85046; 85610; 85730; 86850; 86900; 86901; 87040; 87086; 87899; 92610; 93970; 96361; 96365; 96375; 97110; 97161; 97165; 97530; 99291; A9270; C1751; C9113; C9803; J0456; J0696; J1815; J2405; J2704; J3475; J3480; J7120; U0003; U0005

== ENCOUNTER 2020-12-18 14:23 | Inpatient (IN) | payer MEDICARE, SELFPAY ==
[2020-12-18] VITALS (80 sets, daily range): BP systolic 86–125; BP diastolic 44–87; PULSE 58–165; RESP 15–27; TEMP 36.2–36.8; O2SAT 82–100; BMI 20.8
--- NOTE | ~2020-12-18 | XR_ITS ---
EXAMINATION: XR abdomen NG/feed tube insert DATE: 12/19/2020 22:27 INDICATION: Nasogastric tube placement. TECHNIQUE: An upright view of the abdomen was obtained. COMPARISON: Abdomen radiograph 822 AM FINDINGS: There are no dilated loops of bowel. The nasogastric tube tip is in the stomach. Pulmonary nodules are consistent with old granulomatous disease. There are airspace opacities in left mid and l ower lung zones. There is a small left pleural effusion. IMPRESSION: 1. Nasogastric tube tip in the stomach. 2. Small left pleural effusion. 3. Airspace opacities in left mid and lower lung zones, consistent with atelectasis versus pneumonia. Reviewed, dictated and finalized at location A. SERVICES COORDINATOR IMPRESSION: 1. Nasogastric tube tip in the stomach. 2. Small left pleural effusion. 3. Airspace opacities in left mid and lower lung zones, consistent with atelect asis versus pneumonia.
--- NOTE | ~2020-12-18 | XR_ITS ---
XR chest 1V portable DATE: 12/18/2020 15:33 INDICATION: Shortness of breath. Vomiting. Atrial fibrillation. Lethargy. History of diabetes. TECHNIQUE: Portable AP chest on December 18, 2020 at 1535 hours COMPARISON: November 27, 2020 AP chest FINDINGS: Removal of right subclavian central venous catheter since 11/27/2020. Cardiomegaly. There is extensive thoracic aortic calcification. There is patchy left lower lobe infiltrate. There is old pulmonary granulomatous disease. No pleural effusion or pulmonary vascular congestion or pneumothorax. Diffuse osteopenia. There fracture deformities of the thoracic spine. IMPRESSION: Persistent left lower lobe infiltrate Cardiomegaly and aortic atherosclerosis Reviewed, dictated and finalized at location A. TENANCE DEPARTMENT TECHNICIAN
--- NOTE | ~2020-12-18 | CT_ITS ---
EXAMINATION: CT brain wo con DATE: 12/18/2020 15:49 INDICATION: Seizure. TECHNIQUE: Computed tomography (CT) of the head was performed without intravenous contrast. The mA wa s adjusted according to patient size. Iterative reconstruction technique was employed. The dose-lengt h product was 605.33 mGy-cm. COMPARISON: None FINDINGS: There is a 3.3 x 3.3 x 2.6 cm calcified extra-axial mass at the right side of the falx jareth cent to the right parietal lobe, consistent with a meningioma. There are scattered areas of low atten uation in the cerebral white matter. There is chronic encephalomalacia involving left frontal, pariet al, and occipital lobes. There is no acute ischemic infarct or intracranial hemorrhage. There is ex v acuo dilatation of left lateral ventricle. There is mucosal thickening in the paranasal sinuses. The mastoid air cells are normal. The orbits are normal. IMPRESSION: 1. Chronic encephalomalacia involving the left frontal, parietal, and occipital lobes. 2. 3.3 cm meningioma at the right parietal falx. 3. Mild nonspecific cerebral white matter disease, which likely represents chronic small vessel ische rodolfo disease. Reviewed, dictated and finalized at location A. MOBILE MECHANIC IMPRESSION: 1. Chronic encephalomalacia involving the left frontal, parietal, and occipital lobes. 2. 3.3 cm meningioma at the right parietal falx. 3. 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
--- NOTE | ~2020-12-18 | XR_ITS ---
EXAMINATION: XR abdomen NG/feed tube insert EXAM DATE: 12/19/2020 08:26 INDICATION: Nasogastric tube placement. TECHNIQUE: Frontal projection(s) of the abdomen for interpretation. There is no prior study for catrachita davalos. FINDINGS: Feeding tube tip and side-port project over gastric antrum, body, expected positions. Ther e is multi segmental left lower lobe consolidation. Nonobstructive upper abdominal bowel gas pattern. The bones are osteopenic. There are bony degenerative changes. IMPRESSION: Feeding tube in position. Left basilar consolidation. Reviewed, dictated and finalized at location B. DIRECTOR
--- NOTE | 2020-12-18 14:38 | ECG_ITS ---
Measurements Intervals [place] Rate: 165 P: RI: 0 QRS: -2 QRSD: 76 T: 37 QT: 222 QTc: 368 Interpretive Statements ATRIAL FIBRILLATION WITH RAPID VENTRICULAR RESPONSE CHANGES TO SINUS RHYTHM WITH S SUPRAVENTRICULAR BIGEMINY RSR' IN V1 OR V2, CONSIDER RIGHT VENTRICULAR HYPERTROPHY OR RIGHT VCD EARLY PRECORDIAL R/S TRANSITION NONSPECIFIC ST & T-WAVE ABNORMALITY- DIFFUSE LEADS BASELINE WANDER- III, AVF ABNORMAL ECG Electronically Signed On 12-18-2020 20:13:21 PSYCH COORDINATOR by Neo Moreno D.O.
[2020-12-18] MEDS: dilTIAZem HCl INJ 25 MG/5 ML VIAL 15 MG IV PUSH (14:50)
[2020-12-18] MEDS: PANTOPRAZOLE SODIUM IV 40 MG VIAL IV PUSH ×2 (14:50→23:00)
[2020-12-18] MEDS: SODIUM CHLORIDE 0.9% IV 1,000 ML 150 ML IV CONT (14:50)
--- NOTE | 2020-12-18 15:00 | PC.NURSE ---
Addendum entered by Olivia Morris RN 12/18/20 15:55: Gaze deviated right during seizure activity, with patient's body leaning to the left. Original Note: 1455 - Jerking movements, possible seizure activity, and left gaze deviation noted. MD Dickey to bedside. Seizure activity lasting approximately 1 minute. Patient lethargic but responsive post seizure.
--- NOTE | 2020-12-18 15:02 | ED.NAVMDI ---
HPI - Nausea/Vomiting/Diarrhea General Chief complaint: Nausea/Vomiting/Diarrhea Stated complaint: coffee ground emesis Time Seen by Provider: 12/18/20 14:26 Source: EMS Mode of arrival: EMS Limitations: clinical condition and dementia History of Present Illness HPI Narrative: 85-year-old female Brought from nursing facility by EMS for report of vomiting and possible upper GI bleed Impression of EMS is that the patient was seen here yesterday for coffee-ground emesis however there is nothing like that in our computer and a call to her facility confirms that she was not, however she had been discharged from here 3 weeks ago following a hospitalization for pneumonia with other complications. It was noted in her discharge paperwork that systolic blood pressures were running 90-100 and it was felt that that was her chronic baseline, and that is where she is when she presents now She is also noted to be in atrial fibrillation with rapid rate and has no documented history of that And also after arrival here she had a single generalized seizure with eyes deviating to the right which lasted a minute or 2 and likewise there is no documented history of that either MD elicited complaint: nausea and vomiting Related Data Allergies Allergy/AdvReac Type Severity Reaction Status Date / Time No Known Allergies Allergy Unverified 02/12/19 01:59 Review of Systems Review of Systems: ROS unobtainable: Yes unobtainable due to medical condition and unobtainable due to mental status PMFSH Past Medical History Medical History (Updated 12/18/20 @ 18:07 by Paul Dickey MD) Diabetes Social History Social History (Updated 11/23/20 @ 02:50 by Vincenzo Fatima MD) Smoking status: Unknown if ever smoked Alcohol intake: unknown Substance use: unknown Spiritual care concerns: No Course Course Emergency Course: For ? UGIB received protonix For new AF/RVR received dilt x 1 and converted to NSR BP's roughly stable in the range documented as her baseline at time of recent d/c, ~90 SBP Delay in obtaining labs For trop, d/w cards, no lovenox due to gib concern For sz, rec'd iv keppra, ct showing meningioma For ? pna, fluids, abx started, lactate #1 was wnl Vital Signs Vital signs: Vital Signs Temperature 36.8 C 12/18/20 14:23 Pulse Rate 165 H 12/18/20 14:23 Respiratory Rate 24 H 12/18/20 14:23 Blood Pressure 123/87 12/18/20 14:23 Temperature 36.8 C 12/18/20 14:23 Pulse Rate 97 12/18/20 17:30 Respiratory Rate 19 12/18/20 17:30 Blood Pressure 101/55 L 12/18/20 17:31 Pulse Oximetry 97 12/18/20 17:30 MDM - Nausea/Vomiting/Diarrhea Lab Data Result diagrams: 12/18/20 16:35 12/18/20 16:35 Labs: Lab Results 12/18/20 12/18/20 12/18/20 Range/Units 16:35 16:35 16:35 WBC 19.0 H (4.5-10.0) K/mm3 RBC 2.55 L (4.2-5.4) M/mm3 Hgb 7.4 L (12.0-15.0) g/dL Hct 24.1 L (37.0-47.0) % MCV 94.5 (80-100) fl MCH 29.0 (26-34) pg MCHC 30.7 L (32-36) g/dl RDW 15.0 H (11.5-14.5) % Plt Count 450 H (150-375) k/mm3 MPV 9.8 (7.4-10.4) fl Immature Gran % (Auto) 0.7 H (0-0.5) % Neut % (Auto) 85.3 H (45.5-73.1) % Lymph % (Auto) 7.9 L (18.3-44.2) % [place] % (Auto) 5.4 (2.6-8.5) % Eos % (Auto) 0.3 (0-4.4) % Baso % (Auto) 0.4 (0.2-1.2) % Lymph # (Auto) 1.50 (0.9-3.2) K/mm3 [place] # (Auto) 1.0 H (0.1-0.6) K/mm3 Eos # (Auto) 0.1 (0-0.3) K/mm3 Baso # (Auto) 0.1 (0.0-0.1) K/mm3 Abs Immat Gran (auto) 0.13 H (0.00-0.031) K/mm3 Absolute Neuts (auto) 16.2 H (1.3-6.7) K/mm3 Absolute Nucleated RBC 0.0 (0.0-0.012) K/mm3 Nucleated RBC % 0.0 (0.0-0.2) % Sodium 140 (137-145) mmol/L Potassium 4.0 (3.4-5.0) mmol/L Chloride 104 (98-107) mmol/L Carbon Dioxide 31 H (22-30) mmol/L Anion Gap 5 L (8-16) mmol/L BUN 49 H D (7-17) mg/dL Creatinine 2.20 H (
--- NOTE | 2020-12-18 15:09 | ECG_ITS ---
Measurements Intervals [place] Rate: 99 P: 146 IN: 123 QRS: -22 QRSD: 81 T: 153 QT: 354 QTc: 456 Interpretive Statements SINUS OR ECTOPIC ATRIAL RHYTHM INCOMPLETE RIGHT BUNDLE BRANCH BLOCK LOW QRS VOLTAGE IN LIMB LEADS BORDERLINE T WAVE ABNORMALITY- DIFFUSE LEADS BORDERLINE ECG Electronically Signed On 12-18-2020 20:14:33 PHYSICIAN RECRUITER by Neo Moreno D.O.
[2020-12-18] MEDS: levETIRAcetam 500MG/NACL 100ML 500 MG/100 ML BAG 400 MG IVPB (15:31)
--- NOTE | 2020-12-18 15:38 | PC.NURSE ---
Pt to CT.
--- NOTE | 2020-12-18 16:04 | PC.NURSE ---
Multiple attempts made to collect labs without success. Phlebotomy called to attempt lab draw.
[2020-12-18 16:43] LABS: Basophils Absolute Auto 0.1 K/mm3 (0.0-0.1); Basophils Percent Auto 0.4 % (0.2-1.2); Eosinophils Absolute Auto 0.1 K/mm3 (0-0.3); Eosinophils Percent Auto 0.3 % (0-4.4); Hematocrit 24.1 % (37.0-47.0); Hemoglobin 7.4 g/dL (12.0-15.0); Immature Granulocyte Absolute 0.13 K/mm3 (0.00-0.031); Immature Granulocyte Percent A 0.7 % (0-0.5); Lymphocytes Percent Auto 7.9 % (18.3-44.2); Mean Corpuscular HGB Conc 30.7 g/dl (32-36); Mean Corpuscular Volume 94.5 fl (80-100); Mean Platelet Volume 9.8 fl (7.4-10.4); Monocytes Percent Auto 5.4 % (2.6-8.5); Neutrophils Absolute Auto 16.2 K/mm3 (1.3-6.7); Neutrophils Percent Auto 85.3 % (45.5-73.1); Platelet Count Result 450 k/mm3 (150-375); Red Blood Count 2.55 M/mm3 (4.2-5.4)
[2020-12-18 16:53] LABS: Fractional Inspired Oxygen 44 %; HCO3 VBG 28.9 mEq/l (24.0-30.0); PCO2 VBG 44.1 mmHg (42.0-48.0); PO2 VBG 20.1 mmHg (35.0-45.0); pH VBG 7.435 (7.300-7.400)
[2020-12-18 16:54] LABS: Device NASAL CANNULA
[2020-12-18 16:59] LABS: Alanine Aminotransferase 11 U/L (4-35); Albumin Level 2.3 g/dL (3.5-5.1); Alkaline Phosphatase 80 U/L (38-126); Anion Gap 5 mmol/L (8-16); Aspartate Amino Transferase 23 U/L (14-36); Bilirubin,Total 0.6 mg/dL (0.2-1.3); Blood Urea Nitrogen 49 mg/dL (7-17); Calcium 7.4 mg/dL (8.4-10.2); Carbon Dioxide 31 mmol/L (22-30); Chloride 104 mmol/L (98-107); Estimated CRCL calculation 15 ml/min; Estimated Glomerular Filt Rate 21; Glucose 192 mg/dL (65-105); Lactic Acid Reflex 1.8 mmol/L (0.7-2.1); Sodium 140 mmol/L (137-145)
[2020-12-18 17:02] LABS: Beta-Hydroxybutyrate/Acetoacetate 1.68 mmol/L (0.02-0.27)
[2020-12-18 17:03] LABS: Lipase 42 U/L (23-300); Magnesium 1.6 mg/dL (1.6-2.3)
[2020-12-18 17:21] LABS: Troponin I 0.207 ng/mL (0.000-0.034)
[2020-12-18 17:46] LABS: Add Urine Microscopic? YES; Appearance Urine Clear (Clear); Bacteria Urine Trace /hpf; Bilirubin Urine Negative (Negative); Blood Urine 1+ (Negative); Color Urine Yellow (Yellow); Glucose Urine UA Negative (Negative); Ketones Urine 1+ mg/dL (Negative); Leukocyte Esterase Ur 1+ LEU/UL (Negative); Mucus Urine Rare /lpf; Nitrate Urine Negative (Negative); Protein Urine 2+ mg/dL (Negative); Specific Grav Ur 1.016 (1.001-1.035); Squamous Epithelial Cell Urine Rare /hpf (Few); WBC Urine 21-30 /hpf
[2020-12-18] MEDS: LACTATED RINGERS 1,000 ML 999 ML IV CONT (18:11)
--- NOTE | 2020-12-18 18:12 | PC.NURSE ---
02 decreased to 2 lpm n/c
[2020-12-18] MEDS: LINEZOLID 600 MG/300 ML 600 MG/300 ML SOLN 300 MG IVPB (19:08)
[2020-12-18 19:42] LABS: Troponin I 0.175 ng/mL (0.000-0.034)
[2020-12-18] MEDS: LACTATED RINGERS 1,000 ML 125 ML IV CONT (23:00)
[2020-12-18 23:14] LABS: Troponin I 0.142 ng/mL (0.000-0.034)
--- NOTE | 2020-12-18 23:33 | ADMGEN ---
This patient, Yennifer Baer, was admitted to IMU Room 206-01. Patient/family oriented to hospital policies and general routines including ID bracelet, bed and alarms, visiting hours, pain management, procedures, bathroom and other care routines, personal items, smoking policy, room service/diet, and visiting hours. Information on how to activate the Rapid Response Team has been discussed. Patient/Family are encouraged to report perceived risks to care and to ask questions if they do not understand what they are told or what they should do. angelina sorto
[2020-12-19] VITALS (21 sets, daily range): BP systolic 76–110; BP diastolic 38–72; PULSE 57–191; RESP 12–24; TEMP 36.2–37.4; O2SAT 64–100; BMI 19.8
--- NOTE | 2020-12-19 01:00 | PM.IMHP ---
H&P: HPI History of Present Illness Date/Time: 12/19/20 01:00 Chief Complaint: ?Coffee-ground emesis.? Narrative: This is an 85-year-old female dementia, insulin-dependent diabetes, and anemia presented to the emergency department earlier today from a local half-way with reports of ?coffee-ground emesis.? Dementia she is not able to provide any history and thus all of the following is obtained via a review of her electronic medical records. She is known to the hospitalist service with a recent admission between 11/23 and 11/27 in which she was treated for septic shock attributed to pneumonia (COVID swab negative, unremarkable bedside swallow evaluation). There was concerns for GI blood loss in EGD on 11/26/2020 showed severe ulcerative esophagitis secondary to severe acid reflux for which she was started on Protonix b.i.d.. Staff at the half-way report that she had 5 episodes of emesis that they were concerned contained blood, and she was sent in for evaluation. On EMS arrival she was in atrial fibrillation with rapid ventricular response which apparently is a new diagnosis for the patient. While in the emergency department she had an episode concerning for a generalized seizure with stiffness and eye deviation to the right, lasting a minute or 2 before resolving. At the time my evaluation she is alert to name only. She is not aware that she is in the hospital and has no complaints. Review of Systems Review of Systems: Narrative: A review of systems is unable to be assessed accurately given her severe dementia. Nearly all of my questions go unanswered. [facility] Past Medical History Medical History (Updated 12/19/20 @ 04:43 by Kala Mitchell PA-C) Chronic anemia COVID-19 (~09/2020) Dementia Depression Diverticulitis With history of perforation status post colectomy with colostomy. Insulin dependent diabetes mellitus Ulcerative esophagitis (~11/26/20) Surgical History Surgical History (Updated 12/19/20 @ 04:35 by Kala Mitchell PA-C) History of colectomy For what sounds like perforated diverticulitis. History of colostomy Family History Family History Other Unknown family medical history Social History Social History (Updated 12/19/20 @ 04:36 by Kala Mitchell PA-C) Social History: The patient is a resident at [facility] [place] [facility]. Unknown if she has ever smoked. No mention of alcohol or drug use. Her [id number], Amy Baer, is her emergency contact. The patient is listed as a full code. Spiritual care concerns: No Meds Home Medications and Allergies Home Medications Medication Instructions Recorded Confirmed Type pantoprazole 40 mg PO Q12HR #60 tablet 11/27/20 12/18/20 Rx albuterol sulfate 2 puff INHALATION Q4H PRN 12/18/20 12/18/20 History bisacodyl [Bisa-Lax (bisacodyl)] 10 mg RECTAL DAILY PRN 12/18/20 12/18/20 History insulin aspart U-100 [Novolog See Rx Instructions .ROUTE .COMPLEX 12/18/20 12/18/20 History Flexpen U-100 Insulin] insulin glargine [Lantus U-100 10 unit SUBCUT HS 12/18/20 12/18/20 History Insulin] magnesium citrate [Citroma] 300 ml PO DAILY PRN 12/18/20 12/18/20 History Allergies Allergy/AdvReac Type Severity Reaction Status Date / Time No Known Allergies Allergy Unverified 12/18/20 19:55 Vital Signs Vital Signs - 24 hr 12/18/20 14:23 12/18/20 14:48 12/18/20 14:57 Temperature 98.2 F Pulse Rate 165 H 138 H 119 H Respiratory Rate 24 H 27 H 18 Blood Pressure 123/87 125/62 Pulse Oximetry 82 L 12/18/20 15:01 12/18/20 15:15 12/18/20 15:30 Temperature Pulse Rate 103 H 111 H 120 H Respiratory Rate 21 H 22 H 21 H Blood Pressure Pulse Oximetry 94 12/18/20 15:40 12/18/20 15:49 12/18/20 16:00 Temperature Pulse Rate 99 98 101 H Respiratory Rate 20 16 Blood Pressure Pulse Oximetry 98 12/18/20 16:01 12/18/20 16:02 12/18/20 16:15 [place]
[2020-12-19 05:14] LABS: Basophils Absolute Auto 0.1 K/mm3 (0.0-0.1); Basophils Percent Auto 0.4 % (0.2-1.2); Eosinophils Percent Auto 0.1 % (0-4.4); Hematocrit 26.3 % (37.0-47.0); Hemoglobin 7.9 g/dL (12.0-15.0); Immature Granulocyte Percent A 0.5 % (0-0.5); Lymphocytes Absolute Auto 1.43 K/mm3 (0.9-3.2); Lymphocytes Percent Auto 7.2 % (18.3-44.2); Mean Corpuscular Hemoglobin 28.9 pg (26-34); Mean Corpuscular Volume 96.3 fl (80-100); Mean Platelet Volume 9.9 fl (7.4-10.4); Monocytes Absolute Auto 1.2 K/mm3 (0.1-0.6); Monocytes Percent Auto 6.1 % (2.6-8.5); Neutrophils Percent Auto 85.7 % (45.5-73.1); Platelet Count Result 435 k/mm3 (150-375); Red Blood Count 2.73 M/mm3 (4.2-5.4); Red Cell Distribution Width 14.9 % (11.5-14.5); White Blood Count 19.8 K/mm3 (4.5-10.0)
[2020-12-19 05:50] LABS: Anion Gap 6 mmol/L (8-16); Blood Urea Nitrogen 44 mg/dL (7-17); Calcium 7.4 mg/dL (8.4-10.2); Carbon Dioxide 28 mmol/L (22-30); Chloride 105 mmol/L (98-107); Estimated CRCL calculation 20 ml/min; Estimated Glomerular Filt Rate 31; Glucose 164 mg/dL (65-105); Potassium 4.3 mmol/L (3.4-5.0); Sodium 139 mmol/L (137-145)
--- NOTE | 2020-12-19 05:59 | ECG_ITS ---
Measurements Intervals [place] Rate: 153 P: 12 WI: 206 QRS: 21 QRSD: 75 T: 25 QT: 359 QTc: 574 Interpretive Statements SUPRAVENTRICULAR TACHYCARDIA ST-T WAVE ABNORMALITY IN ANTERIOR LEADS- CONSIDER ISCHEMIA BASELINE ARTIFACT- I, II, III, AVR, AVL,A VF, V1-V6 ABNORMAL ECG Electronically Signed On 12-19-2020 10:05:59 PUBLIC ADDRESS TECHNICIAN by Neo Moreno D.O.
[2020-12-19] MEDS: dilTIAZem HCl INJ 25 MG/5 ML VIAL 15 MG IV PUSH (06:26)
[2020-12-19] MEDS: LINEZOLID 600 MG/300 ML 600 MG/300 ML SOLN 300 MG IVPB ×2 (06:29→17:53)
[2020-12-19 07:14] LABS: Thyroid Stimulating Hormone Reflex 0.678 uIU/mL (0.465-4.68)
--- NOTE | 2020-12-19 08:34 | P.PNIM_ITS ---
Progress Note: A&P Assessment and Plan (1) Witnessed seizure-like activity: Code(s): R56.9 - Unspecified convulsions Status: Acute Assessment and Plan: Patient given one time dose Keppra in ED, no new orders renewed. Dr. Marie consulted from ED. Head CT shows 3.3 cm meningioma right parietal falx * Will defer further management to Neurology at this time * EEG * Monitor closely * Seizure precautions * telemetry (2) Coffee ground emesis: Code(s): K92.0 - Hematemesis Status: Acute Assessment and Plan: H&H is stable. NG tube now placed with brown coloration to stomach contents. GI consulted and appreciate recommendations. Recent EGD showed severe ulcerative esophagitis. No a/c given suspected GI bleed. PPI BID started in ED * monitor H&H this afternoon * Continue IV PPI Q12h for now * Monitor closely (3) Atrial fibrillation with rapid ventricular response: Code(s): I48.91 - Unspecified atrial fibrillation Status: Acute Assessment and Plan: Patient started on diltiazem drip. Appears to be back into sinus rhythm this morning, although was in a fib with RVR at roughly 0600. Per ED notes, Cardiology consulted and recommends holding a/c given suspected GIB. * Continue diltiazem drip for now * Hold a/c for now * Await further rec from Cardiology * Monitor closely (4) Acute kidney injury: Code(s): N17.9 - Acute kidney failure, unspecified Status: Acute Assessment and Plan: Cr 2.60 on arrival, most likely due to dehydration given her exam findings and she will be cautiously hydrated with close monitoring of volume status. Cr 1.60 this morning * Light IV fluids for now * Monitor closely (5) Dehydration: Code(s): E86.0 - Dehydration Status: Acute Assessment and Plan: Possibly 2/2 poor PO intake * Light IV fluids for now * Caution with fluids as to note fluid overload patient (6) Elevated troponin: Code(s): R77.8 - Other specified abnormalities of plasma proteins Status: Acute Assessment and Plan: Likely secondary to a fib with RVR. Cardiology consulted and following; appreciate recommendations. Mildly elevated and trending down. * Await further rec from Cardiology (7) Meningioma: Code(s): D32.9 - Benign neoplasm of meninges, unspecified Status: Acute Assessment and Plan: Possible etiology behind seizure? Dr. Marie consulted and appreciate recommendations * Monitor * EEG * Await further rec from Neurology (8) Insulin dependent diabetes mellitus: Status: Inactive Assessment and Plan: BGL in 200s this morning * Accuchecks Q6hr, hypoglycemia protocol, correctional insulin, NPO (9) Chronic anemia: Code(s): D64.9 - Anemia, unspecified Status: Inactive Assessment and Plan: H&H appears stable, but still low. Possible Upper GIB as well * Trend H&H this afternoon * Monitor (10) Dementia: Code(s): F03.90 - Unspecified dementia without behavioral disturbance Status: Inactive Assessment and Plan: * Continue home meds when not NPO (11) Abnormal chest x-ray: Code(s): R93.89 - Abnormal f
--- NOTE | 2020-12-19 08:34 | PM.IMPN ---
Progress Note: A&P Assessment and Plan (1) Witnessed seizure-like activity: Code(s): R56.9 - Unspecified convulsions Status: Acute Assessment and Plan: Patient given one time dose Keppra in ED, no new orders renewed. Dr. Marie consulted from ED. Head CT shows 3.3 cm meningioma right parietal falx Will defer further management to Neurology at this time EEG Monitor closely Seizure precautions telemetry (2) Coffee ground emesis: Code(s): K92.0 - Hematemesis Status: Acute Assessment and Plan: H&H is stable. NG tube now placed with brown coloration to stomach contents. GI consulted and appreciate recommendations. Recent EGD showed severe ulcerative esophagitis. No a/c given suspected GI bleed. PPI BID started in ED monitor H&H this afternoon Continue IV PPI Q12h for now Monitor closely (3) Atrial fibrillation with rapid ventricular response: Code(s): I48.91 - Unspecified atrial fibrillation Status: Acute Assessment and Plan: Patient started on diltiazem drip. Appears to be back into sinus rhythm this morning, although was in a fib with RVR at roughly 0600. Per ED notes, Cardiology consulted and recommends holding a/c given suspected GIB. Continue diltiazem drip for now Hold a/c for now Await further rec from Cardiology Monitor closely (4) Acute kidney injury: Code(s): N17.9 - Acute kidney failure, unspecified Status: Acute Assessment and Plan: Cr 2.60 on arrival, most likely due to dehydration given her exam findings and she will be cautiously hydrated with close monitoring of volume status. Cr 1.60 this morning Light IV fluids for now Monitor closely (5) Dehydration: Code(s): E86.0 - Dehydration Status: Acute Assessment and Plan: Possibly 2/2 poor PO intake Light IV fluids for now Caution with fluids as to note fluid overload patient (6) Elevated troponin: Code(s): R77.8 - Other specified abnormalities of plasma proteins Status: Acute Assessment and Plan: Likely secondary to a fib with RVR. Cardiology consulted and following; appreciate recommendations. Mildly elevated and trending down. Await further rec from Cardiology (7) Meningioma: Code(s): D32.9 - Benign neoplasm of meninges, unspecified Status: Acute Assessment and Plan: Possible etiology behind seizure? Dr. Marie consulted and appreciate recommendations Monitor EEG Await further rec from Neurology (8) Insulin dependent diabetes mellitus: Status: Inactive Assessment and Plan: BGL in 200s this morning Accuchecks Q6hr, hypoglycemia protocol, correctional insulin, NPO (9) Chronic anemia: Code(s): D64.9 - Anemia, unspecified Status: Inactive Assessment and Plan: H&H appears stable, but still low. Possible Upper GIB as well Trend H&H this afternoon Monitor (10) Dementia: Code(s): F03.90 - Unspecified dementia without behavioral disturbance Status: Inactive Assessment and Plan: Continue home meds when not NPO (11) Abnormal chest x-ray: Code(s): R93.89 - Abnormal findings on diagnostic imaging of other specified body structures Status: Acute Assessment and Plan: CXR shows persistent LLL infiltrate, although exam today reveals coarse breath sounds b/l and patient his hypoxic. Aspiration pneumonia suspected and has been on Zosyn and Linezolid since arrival. WBC 19.8k. Patient's BP low but appears similar to previous hospital stay. tachypneic. Mod barium swallow ordered Con
[2020-12-19 08:51] LABS: Glucose Point of Care 229 (65-105)
--- NOTE | 2020-12-19 09:01 | PC.NURSE ---
found pt actively vomitting at approx 0430. It was a large amount enough that it ran off the bed. I hooked up suction and cleaned her up with Donna. Pts color went back to normal and she answered her birthday for the first time. She did not throw up any further when rolled back and forth being cleaned up and didn't appear nauseous or uncomfortable at that time.
--- NOTE | 2020-12-19 09:05 | PC.NURSE ---
At approx 0545 pts heart rate jumped into the 200s. We called a rapid response after checking pt at bedside. She vomited a small amount more at that time and respiratory suctioned her. Adenosine was pushed twice with no results. Spoke w Dr. Brown she ordered 15mg IVP cardizem, Cardizem gtt at 10hr and an NG.
--- NOTE | 2020-12-19 09:22 | PCSTNOTE ---
Radiology reported that patient is not able to tolerate a Modified Barium Swallow study and that it is cancelled at this time. It may be re-ordered when patient condition improves.
[2020-12-19] MEDS: INSULIN ASPART (*BKC) 100 UNITS/ML SUB-Q (10:04)
--- NOTE | 2020-12-19 11:16 | PM.CNGS ---
Assessment and Plan Assessment and plan (1) Rectal abnormality: Code(s): K62.9 - Disease of anus and rectum, unspecified Status: Acute Assessment and Plan: This patient had a Orin's procedure for perforated diverticulitis at [facility] in early 2019. We are being consulted due to purulent drainage coming from her rectum of an unknown source. On exam, there is a purulent long/pink drainage that is definitely coming from the rectum, only a small amount. No obvious external abnormalities on her rectal exam that would account for the drainage. Considering she has come in appearing septic, we would agree with proceeding with a CT of the abdomen and pelvis to further evaluate any intra-abdominal source. Continue IV broad-spectrum antibiotics. We will await CT results and decipher plan according. Also, I spoke with the Hospitalist in regards to the patient's code status. She is currently a DNR and the patient's family is planning to discuss possible comfort measures but have not decided as of yet. Thank you for allowing us to see the patient in consultation and we will continue to follow along with you. (2) Sepsis: Code(s): A41.9 - Sepsis, unspecified organism Status: Acute Assessment and Plan: Criteria met on admission. Pulmonary vs. intra-abdominal source? Obtaining CT abd/pelvis to further evaluate. Urine and blood cultures pending. Received IV fluid resuscitation. Lactic acid 1.8. Continue broad-spectrum IV abx and IV fluids. Management per primary team. (3) Pneumonia: Code(s): J18.9 - Pneumonia, unspecified organism Status: Acute Assessment and Plan: Suspected aspiration pneumonia. On broad spectrum IV abx and requiring 2L O2 currently. Management per primary service. (4) Acute kidney injury: Code(s): N17.9 - Acute kidney failure, unspecified Status: Acute Assessment and Plan: Management per primary team. (5) Coffee ground emesis: Code(s): K92.0 - Hematemesis Status: Acute Assessment and Plan: Hx of ulcerative esophagitis. GI consulted. NG tube in place. (6) Ulcerative esophagitis: Onset Date: ~11/26/20 Code(s): K22.10 - Ulcer of esophagus without bleeding Status: Acute Assessment and Plan: History of ulcerative esophagitis noted on EGD about 1 month ago, treated here at [place]. Now with concern for upper GI bleed. Continue PPI, monitor H/H and transfuse as needed. GI has been consulted. (7) Atrial fibrillation with rapid ventricular response: Code(s): I48.91 - Unspecified atrial fibrillation Status: Acute Assessment and Plan: A fib RVR on admission. Avoiding anticoagulation due to GI bleed. Elevated Troponins. Cardiology has been consulted. Management per primary team. (8) Witnessed seizure-like activity: Code(s): R56.9 - Unspecified convulsions Status: Acute Assessment and Plan: Seizure activity in the ER. Management per primary team. (9) Dementia: Code(s): F03.90 - Unspecified dementia without behavioral disturbance Status: Acute (10) Insulin dependent diabetes mellitus: Status: Acute Additional Plan Discussed the patient's case and plan of care with Dr. Hart. History of Present Illness Consult details Consult date: 12/19/20 Reason for consult: other (Purulent rectal drainage with colostomy in place) Requesting physician: Noe Swartz PA-C Narrative: This is an 85-year-old female who has dementia and unable to provide a history. Therefore, her information is obtained from review of her electronic medical record. She appears to have a history of perforated diverticulitis with abscess in October 2018 and was treated at [facility]. She subsequently had a Orin's procedure while there. 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
[2020-12-19] MEDS: LACTATED RINGERS 1,000 ML 125 ML IV CONT ×2 (11:48→23:44)
[2020-12-19] MEDS: PANTOPRAZOLE SODIUM IV 40 MG VIAL IV PUSH ×2 (11:48→21:30)
[2020-12-19] MEDS: SODIUM CHLORIDE 0.9% IV 500 ML IV CONT ×2 (12:04→15:23)
[2020-12-19 12:42] LABS: Glucose Point of Care 169 (65-105)
--- NOTE | 2020-12-19 14:50 | WPDNEURORHBP ---
Subjective Date/time seen: 12/19/20 14:50 85 years old has been admitted to the hospital for the coffee ground emesis neuro consultation has been obtained because patient currently carries a diagnosis of dementia, insulin-dependent diabetes mellitus and no further information could be obtained from the patient is as per the hospital recently her COVID was negative but she does have ongoing history of COVID-19 in September of 2020 along with the chronic anemia dementia depression diverticulitis DVTs mellitus evaluation documented chronic encephalomalacia involving the left frontal parietal and occipital lobes on CT scan with 3.3cm meningioma at the right parietal falx cerebri, medications include Zyvox 600 q.12 hours Zosyn IV piggyback Q 8 hours and insulin 2 to 5 units subcu 3 times a day Review of Systems Review of Systems: All systems reviewed & are unremarkable except as noted in HPI and below Exam Const: General: awake and ill appearing Nutritional Appearance: thin and underweight Orientation/consciousness: confusion and lethargic Limitations: altered mental status and physical limitations HENMT: Head: normocephalic Eyes: Periorbital: periorbital findings normal Eyelids: eyelids normal Conjunctivae: conjunctivae normal Sclera: sclerae normal Cornea: corneas normal Resp: Effort & Inspection: normal respiratory effort Auscultation: clear to auscultation bilaterally Cardio: Rate: regular rate GI: Auscultation: normal bowel sounds Neuro: General: moves all extremities and no meningeal signs Cranial nerves: Yes Nystagmus not present Cognition (Neuro): abnormal cognition Speech: aphasia Gait exam (Neuro): Unable to assess gait Motor exam (neuro): Abnormal motor strength present Sensory Exam: Sensory deficit (Neuro) Deep tendon reflexes (DTR's): Right triceps reflex intensity grade: 1+, Left triceps reflex intensity grade: 1+, Rt Biceps (C5, C6): 1+, Left biceps reflex intensity grade: 1+, Right brachioradialis reflex intensity grade: 1+, Left brachioradialis reflex intensity grade: 1+, Right patellar reflex intensity grade: 1+, Left patellar reflex intensity grade: 1+, Right ankle reflex intensity grade: 1+ and Left ankle reflex intensity grade: 1+ Plantar Reflex Responses: equivocal: bilateral Psych: Appearance: disheveled Objective Data Vital Signs Vital Signs: Vital Signs - 24 hr 12/18/20 14:57 12/18/20 15:01 12/18/20 15:15 Temperature Pulse Rate 119 H 103 H 111 H Respiratory Rate 18 21 H 22 H Blood Pressure 125/62 Pulse Oximetry 94 12/18/20 15:30 12/18/20 15:40 12/18/20 15:49 Temperature Pulse Rate 120 H 99 98 Respiratory Rate 21 H 20 Blood Pressure Pulse Oximetry 98 12/18/20 16:00 12/18/20 16:01 12/18/20 16:02 Temperature Pulse Rate 101 H 92 98 Respiratory Rate 16 19 24 H Blood Pressure 101/45 L Pulse Oximetry 96 95 12/18/20 16:15 12/18/20 16:16 12/18/20 16:17 Temperature Pulse Rate 102 H 100 92 Respiratory Rate 22 H 22 H 20 Blood Pressure 93/53 L Pulse Oximetry 92 92 12/18/20 16:30 12/18/20 16:38 12/18/20 16:45 Temperature Pulse Rate 100 96 98 Respiratory Rate 22 H 21 H 24 H Blood Pressure 93/53 L 95/58 L Pulse Oximetry 93 12/18/20 16:46 12/18/20 17:00 12/18/20 17:01 Temperature Pulse Rate 95 94 98 Respiratory Rate 23 H 20 23 H Blood Pressure 93/50 L 95/48 L Pulse Oximetry 12/18/20 17:02 12/18/20 17:15 12/18/20 17:16 Temperature Pulse Rate 94 95 100 Respiratory Rate 23 H 22 H 20 Blood Pressure Pulse Oximetry 94 12/18/20 17:21 12/18/20 17:30 12/18/20 17:31 Temperature Pulse Rate 102 H 97 102 H Respiratory Rate 19 19 23 H Blood Pressure 87/62 L 101/55 L Pulse Oximetry 97 97 12/18/20 17:45 12/18/20 17:46 12/18/20 18:00 Temperature Pulse Rate 90 90 97 Respiratory Rate 20 16 22 H Blood Pressure 89/49 L Pulse Oximetry 12/18/20 18:01 12/18/20 18:02 12/18/20 18:15 Temperature Pulse
--- NOTE | 2020-12-19 14:58 | CONS_ITS ---
This report was recreated as a consult on December 20, 2020. Original report was signed by Dr. Rashi Marie on December 19, 2020. Subjective Date/time seen: 12/19/20 14:50 85 years old has been admitted to the hospital for the coffee ground emesis neuro consultation has been obtained because patient currently carries a diagnosis of dementia, insulin-dependent diabetes mellitus and no further information could be obtained from the patient is as per the hospital recently her COVID was negative but she does have ongoing history of COVID-19 in September of 2020 along with the chronic anemia dementia depression diverticulitis DVTs mellitus evaluation documented chronic encephalomalacia involving the left frontal parietal and occipital lobes on CT scan with 3.3cm meningioma at the right parietal falx cerebri, medications include Zyvox 600 q.12 hours Zosyn IV piggyback Q 8 hours and insulin 2 to 5 units subcu 3 times a day Review of Systems Review of Systems: All systems reviewed & are unremarkable except as noted in HPI and below Exam Const: General: awake and ill appearing Nutritional Appearance: thin and underweight Orientation/consciousness: confusion and lethargic Limitations: altered mental status and physical limitations HENMT: Head: normocephalic Eyes: Periorbital: periorbital findings normal Eyelids: eyelids normal Conjunctivae: conjunctivae normal Sclera: sclerae normal Cornea: corneas normal Resp: Effort & Inspection: normal respiratory effort Auscultation: clear to auscultation bilaterally Cardio: Rate: regular rate GI: Auscultation: normal bowel sounds Neuro: General: moves all extremities and no meningeal signs Cranial nerves: Yes Nystagmus not present Cognition (Neuro): abnormal cognition Speech: aphasia Gait exam (Neuro): Unable to assess gait Motor exam (neuro): Abnormal motor strength present Sensory Exam: Sensory deficit (Neuro) Deep tendon reflexes (DTR's): Right triceps reflex intensity grade: 1+, Left triceps reflex intensity grade: 1+, Rt Biceps (C5, C6): 1+, Left biceps reflex intensity grade: 1+, Right brachioradialis reflex intensity grade: 1+, Left brachioradialis reflex intensity grade: 1+, Right patellar reflex intensity grade: 1+, Left patellar reflex intensity grade: 1+, Right ankle reflex intensity grade: 1+ and Left ankle reflex intensity grade: 1+ Plantar Reflex Responses: equivocal: bilateral Psych: Appearance: disheveled Objective Data Vital Signs Vital Signs: Vital Signs - 24 hr 12/18/20 14:57 12/18/20 15:01 12/18/20 15:15 Temperature Pulse Rate 119 H 103 H 111 H Respiratory Rate 18 21 H 22 H Blood Pressure 125/62 Pulse Oximetry 94 12/18/20 15:30 12/18/20 15:40 12/18/20 15:49 Temperature Pulse Rate 120 H 99 98 Respiratory Rate 21 H 20 Blood Pressure Pulse Oximetry 98 12/18/20 16:00 12/18/20 16:01 12/18/20 16:02 Temperature Pulse Rate 101 H 92 98 Respiratory Rate 16 19 24 H Blood Pressure 101/45 L Pulse Oximetry 96 95 12/18/20 16:15 12/18/20 16:16 12/18/20 16:17 Temperature Pulse Rate 102 H 100 92 Respiratory Rate 22 H 22 H 20 Blood Pressure 93/53 L Pulse Oximetry 92 92 12/18/20 16:30 12/18/20 16:38 12/18/20 16:45 Temperature Pulse Rate 100 96 98 Respiratory Rate 22 H 21 H 24 H Blood Pressure 93/53 L 95/58 L Pulse Oximetry 93 12/18/20 16:46 12/18/20 17:00 12/18/20 17:01 Temperature Pulse Rate 95 94 98 Respiratory Rate 23 H 20 23 H Blood Pr
[2020-12-19 15:21] LABS: Hematocrit 24.3 % (37.0-47.0); Hemoglobin 7.6 g/dL (12.0-15.0)
--- NOTE | 2020-12-19 16:50 | PM.CNCAR ---
Assessment and Plan Assessment and plan (1) Atrial fibrillation with rapid ventricular response: Code(s): I48.91 - Unspecified atrial fibrillation Status: Acute Assessment and Plan: Resolved this time, new diagnosis per records. Converted to sinus rhythm while on diltiazem infusion which has subsequently been discontinued due to hypotension. She is not an anticoagulation candidate due to anemia, coffee-ground emesis and concern for GI bleed. GI consultation appreciated. (2) Elevated troponin: Code(s): R77.8 - Other specified abnormalities of plasma proteins Status: Acute Assessment and Plan: Fairly flat troponin multifactorial most likely type 2 infarct not acute coronary syndrome secondary to acute renal failure, sepsis/septic shock, anemia and atrial fibrillation with rapid ventricular response. She is not a candidate for invasive angiography anticoagulation or aggressive antiplatelet therapy at this time given GI bleed concerns. (3) Septic shock: Code(s): A41.9 - Sepsis, unspecified organism; R65.21 - Severe sepsis with septic shock Status: Acute Assessment and Plan: AV bharat blocking agents held secondary to persistent hypotension at a concern for septic shock, hypotension. She is on broad-spectrum antibiotics. Purulence drainage per rectum noted with leukocytosis. Prognosis poor. IV hydration. Code status discussion with family. (4) GI bleed: Qualifiers: GI bleed type/associated pathology: unspecified gastrointestinal hemorrhage type Qualified Code(s): K92.2 - Gastrointestinal hemorrhage, unspecified Code(s): K92.2 - Gastrointestinal hemorrhage, unspecified Status: Acute Assessment and Plan: GI consulted. Follow H&H, chronic anemia noted. History of severe ulcerative esophagitis by EGD recently. Not a candidate for anticoagulation. (5) Acute kidney injury: Code(s): N17.9 - Acute kidney failure, unspecified Status: Acute Assessment and Plan: Improving, creatinine 1.6 down from 2.2. (6) Dementia: Code(s): F03.90 - Unspecified dementia without behavioral disturbance Status: Acute Assessment and Plan: Chronic acute exacerbation due to clinical status, concern for possible seizure at admission. (7) Coffee ground emesis: Code(s): K92.0 - Hematemesis Status: Acute Assessment and Plan: As above. GI consultation appreciated. History of Present Illness History of Present Illness Consult date/time: Date of service: 12/19/20 09:35 Cardiology consultation at the request of Noe Swartz of the [facility] for my opinion regarding atrial fibrillation with rapid ventricular response and elevated troponin Requesting physician: Kala Mitchell PA-C Consult reason: atrial fibrillation Reason For Visit: afib w/ rvr, seizure, pneumonia, dalia Narrative: Patient is an 85-year-old female with a past medical history significant for diabetes mellitus, chronic anemia, dementia, COVID-12 October 2020, history of ulcerative esophagitis who [facility] coffee-ground emesis. Patient was unable to provide any history and as such information is obtained through the electronic medical record. She was recently admitted end of October for septic shock secondary to pneumonia and with concerns for GI blood loss with severe ulcerative esophagitis secondary to his severe acid reflux by EGD 11/26/2020. It is reported the patient has 5 episodes of emesis which contained glad which was again witnessed in the emergency department. There was an episode in the ER concerning for generalized seizure lasting 2 minutes with diffuse stiffness and right gaze deviation. She is oriented to her name only in when asked where she is currently she mouths home . She denied pain or shortness of breath. Surgical consultation obtained. With rapid vent
--- NOTE | 2020-12-19 16:53 | WPDGICN ---
Assessment and Plan Assessment and plan (1) Coffee ground emesis: Code(s): K92.0 - Hematemesis Status: Acute Assessment and Plan: admitted to floor, started on iv protonix monitor for more signs of bleeding, also noted melena in colostomy recent EGD showed severe esophagitis family to decide if they want to make her comfort care, based on that then will make a decision if she can get EGD (2) Ulcerative esophagitis: Onset Date: ~11/26/20 Code(s): K22.10 - Ulcer of esophagus without bleeding Status: Acute Assessment and Plan: iv protonix and carafate (3) Melena: Code(s): K92.1 - Melena Status: Acute (4) Atrial fibrillation with rapid ventricular response: Code(s): I48.91 - Unspecified atrial fibrillation Status: Acute Assessment and Plan: cardiology on board no anticoagulation in setting of GIB (5) Dementia: Code(s): F03.90 - Unspecified dementia without behavioral disturbance Status: Acute (6) Rectal abnormality: Code(s): K62.9 - Disease of anus and rectum, unspecified Status: Acute Assessment and Plan: h/o diverticulitis in past now with ostomy, noted some drainage by rectum CT scan a/p pending, could be diversion colitis. Surgery on board GI Consult Note Consult date/time: 12/19/20 16:53 Reason for consult: hematemesis HPI: Yennifer Baer is a 85 year old female with history dementia (history obtained from records and RN). She had perforated diverticulitis with abscess in October 2018, treated at [facility] with Orin's procedure and colostomy, also had percutaneous cholecystostomy tube placed for gallbladder disease. She also has diabetes, hypertension, dementia, meningioma. Currently she lives in [place] [facility], about a month ago was here for upper GI bleed, Dr Mosley found severe erosive esophagitis. She is here again with coffee-ground emesis, also had witnessed seizure activity, white blood cell count 19,000. Also was in atrial fib with RVR, given Diltiazem, did not get anticoagulation because GIB. Hemoglobin 7.4, also sstarted on protonix and broad-spectrum IV antibiotics for possible sepsis. RN reports also purulent drainage coming from her rectum. She is disoriented and can not get history from her. Also noted dark stool in colostomy. Review of Systems Review of Systems: ROS unobtainable: Yes unobtainable due to mental status PMFSH Past Medical History Medical History Chronic anemia COVID-19 (~09/2020) Dementia Depression Diverticulitis With history of perforation/abscess status post Orin's procedure. History of gallbladder disease Previously treated at [facility] with percutaneous cholecystostomy tube in early 2018. History of pulmonary embolism Insulin dependent diabetes mellitus Meningioma Ulcerative esophagitis (~11/26/20) Surgical History Surgical History History of colectomy Orin's procedure for perforated diverticulitis at [facility] Family History Family History Other Unknown family medical history Social History Social History Social History: The patient is a resident at [facility]. Unknown if she has ever smoked. No mention of alcohol or drug use. Her [id number], Amy Baer, is her emergency contact. The patient is listed as a full code. Spiritual care concerns: No Meds Home Medications and Allergies Home Medications Medication Instructions Recorded Confirmed Type pantoprazole 40 mg PO Q12HR #60 tablet 11/27/20 12/18/20 Rx albuterol sulfate 2 puff INHALATION Q4H PRN 12/18/20 12/18/20 History bisacodyl [Bisa-Lax (bisacodyl)] 10 mg RECTAL DAILY PRN 12/18/20 12/18/20 History insulin aspar
[2020-12-19 18:09] LABS: Glucose Point of Care 86 (65-105)
[2020-12-19 22:21] LABS: Glucose Point of Care 128 (65-105)
[2020-12-19 22:21] LABS: Glucose Point of Care 118 (65-105)
[2020-12-20] VITALS (10 sets, daily range): BP systolic 78–90; BP diastolic 42–52; PULSE 74–82; RESP 16–20; TEMP 36.2–36.7; O2SAT 93–100
[2020-12-20 01:31] LABS: Glucose Point of Care 115 (65-105)
[2020-12-20] MEDS: SODIUM CHLORIDE 0.9% IV 500 ML 999 ML IV CONT ×2 (02:09→04:33)
--- NOTE | 2020-12-20 02:15 | PC.NURSE ---
Called son Jevon at [phone] to let him know that Yennifer's blood pressures were still low and to ascertain what measures they would be comfortable with for treatment. Pt's son stated that they decided against a central line and pressors at this point. He agreed to a blood transfusion if necessary.
[2020-12-20 06:42] LABS: Glucose Point of Care 103 (65-105)
[2020-12-20] MEDS: LINEZOLID 600 MG/300 ML 600 MG/300 ML SOLN 300 MG IVPB (07:45)
[2020-12-20] MEDS: PANTOPRAZOLE SODIUM IV 40 MG VIAL IV PUSH (08:56)
[2020-12-20] MEDS: LACTATED RINGERS 1,000 ML 125 ML IV CONT (08:59)
--- NOTE | 2020-12-20 09:32 | WPDPN ---
Progress Note: A&P Assessment and Plan (1) Sepsis: Code(s): A41.9 - Sepsis, unspecified organism Status: Acute Assessment and Plan: decision to proceed c hospice care, will sign off, please call c ?s, issues (2) Rectal abnormality: Code(s): K62.9 - Disease of anus and rectum, unspecified Status: Acute Assessment and Plan: see above (3) Acute upper GI bleed: Code(s): K92.2 - Gastrointestinal hemorrhage, unspecified Status: Acute Assessment and Plan: see above Review of Systems Review of Systems: ROS unobtainable: Yes unobtainable due to medical condition and unobtainable due to mental status Exam Const: General: ill appearing and patient obtunded Orientation/consciousness: confusion and patient obtunded GI: Other: soft, sl dist, mild TTP Objective Data Vital Signs Vital Signs: Vital Signs - 24 hr 12/19/20 09:40 12/19/20 10:00 12/19/20 10:08 Temperature Pulse Rate 83 89 Respiratory Rate Blood Pressure Pulse Oximetry 93 12/19/20 11:45 12/19/20 12:00 12/19/20 13:09 Temperature 36.6 C Pulse Rate 85 86 Respiratory Rate 18 Blood Pressure 77/38 L 76/38 L 80/38 L Pulse Oximetry 96 12/19/20 14:00 12/19/20 16:00 12/19/20 18:00 Temperature 36.7 C Pulse Rate 85 81 82 Respiratory Rate 12 Blood Pressure 89/44 L Pulse Oximetry 90 12/19/20 19:00 12/19/20 20:00 12/19/20 21:22 Temperature 37.4 C Pulse Rate 81 75 Respiratory Rate 20 Blood Pressure 92/48 L 86/51 L Pulse Oximetry 100 12/19/20 22:00 12/20/20 00:00 12/20/20 01:35 Temperature 36.2 C L Pulse Rate 80 79 Respiratory Rate 20 Blood Pressure 83/48 L 86/42 L Pulse Oximetry 100 12/20/20 02:00 12/20/20 04:00 12/20/20 06:00 Temperature 36.3 C L Pulse Rate 79 78 82 Respiratory Rate 20 Blood Pressure 89/51 L Pulse Oximetry 98 12/20/20 06:56 12/20/20 07:56 12/20/20 08:00 Temperature 36.7 C Pulse Rate 79 Respiratory Rate 16 Blood Pressure 90/52 L 88/42 L Pulse Oximetry 98 93 12/20/20 08:20 Temperature Pulse Rate Respiratory Rate Blood Pressure Pulse Oximetry 98 Intake/Output Intake/Output: Intake & Output 12/17/20 12/18/20 12/19/20 12/20/20 23:59 23:59 23:59 23:59 Intake Total 2450 2960 2350 Balance 2450 2960 2350 Meds/Results Medications: Active Medications Generic Name Dose Route Start Last Admin Trade Name Freq PRN Reason Stop Dose Admin Albuterol 2 puff 12/19/20 04:53 Albuterol Sulfate (*Sp) Aerosol 1 Puff INHALATION Q4H PRN Wheezing Dextrose 12.5 gm 12/19/20 04:54 Dextrose 50% 25 Gm/50 Ml Syringe IV PUSH PRN PRN Hypoglycemia Protocol Glucagon 1 mg 12/19/20 04:54 Glucagon For Inj 1 Mg Vial IM PRN PRN Hypoglycemia Protocol Glucose 15 gm 12/19/20 04:54 Glucose Oral Gel 15 Gm Of Glucse In 37.5 Gm Tube PO PRN PRN Hypoglycemia Protocol Lactated Ringer's 1,000 mls @ 75 mls/hr 12/18/20 17:55 12/20/20 08:59 Lr - Lactated Ringers Iv IV CONT 125 mls/hr .[id number] MIKE Administration Linezolid 600 mg in 300 mls @ 300 mls/hr 12/19/20 07:00 12/20/20 08:57 Zyvox IVPB Infused Q12H MIKE Infusion Piperacillin Sod/Tazobactam Sod 2.25 gm in 50 mls @ 100 mls/hr 12/19/20 02:00 12/20/20 09:12 Zosyn 2.25 Gm/D5w 50 Ml IVPB 100 mls/hr Q8H MIKE Administration Dextrose 1,000 mls @ 100 mls/hr 12/19/20 04:54 Dextrose 5% 1,000 Ml IVPB PRN PRN Hypoglycemia Protocol Sodium Chloride 250 mls @ 30 mls/hr 12/20/20 04:07 Normal Saline Iv IV CONT 12/20/20 12:26 .Q8H20M STA Insulin Aspart 2 - 5 units 12/19/20 18:00 12/20/20 08:54 Insulin Aspart (*Bkc) 100 Units/Ml SUB-Q Not Given Q6HR [facility] Protocol Ondansetron HCl 4 mg 12/18/20 17:54 Ondansetron Inj 4 Mg/2 Ml Vial IV PUSH Q4H PRN Nausea Pantoprazole Sodium 40 mg 12/18/20 21:00 12/20/
--- NOTE | 2020-12-20 09:48 | PCDIET ---
Nutrition Follow-Up Complete: Nutrition Diagnosis: Inadequate oral intake related to suspected GI bleed as evidenced by NPO status. Nutrition Goal: Patient to meet estimated nutritional needs. Goal not met; however, plan for hospice care, per MD note. NPO appropriate. Consult RD if plan changes and aggressive nutrition support is desired. Follow up in 3 days to check plan of care.
--- NOTE | 2020-12-20 10:33 | PM.IMPN ---
Progress Note: A&P Assessment and Plan (1) Witnessed seizure-like activity: Code(s): R56.9 - Unspecified convulsions Status: Acute Assessment and Plan: Comfort measures and hospice care (2) Coffee ground emesis: Code(s): K92.0 - Hematemesis Status: Acute Assessment and Plan: Comfort measures under hospice (3) Atrial fibrillation with rapid ventricular response: Code(s): I48.91 - Unspecified atrial fibrillation Status: Acute Assessment and Plan: Comfort measures and hospice care (4) Acute kidney injury: Code(s): N17.9 - Acute kidney failure, unspecified Status: Acute Assessment and Plan: Comfort measures and hospice care (5) Dehydration: Code(s): E86.0 - Dehydration Status: Acute Assessment and Plan: Comfort measures and hospice care (6) Elevated troponin: Code(s): R77.8 - Other specified abnormalities of plasma proteins Status: Acute Assessment and Plan: Comfort care and hospice (7) Meningioma: Code(s): D32.9 - Benign neoplasm of meninges, unspecified Status: Inactive Assessment and Plan: Comfort measures (8) Insulin dependent diabetes mellitus: Status: Acute Assessment and Plan: Comfort care and hospice (9) Chronic anemia: Code(s): D64.9 - Anemia, unspecified Status: Inactive Assessment and Plan: Comfort care and hospice (10) Dementia: Code(s): F03.90 - Unspecified dementia without behavioral disturbance Status: Acute Assessment and Plan: Comfort care (11) Abnormal chest x-ray: Code(s): R93.89 - Abnormal findings on diagnostic imaging of other specified body structures Status: Acute Assessment and Plan: Comfort care (12) History of colectomy: Code(s): Z90.49 - Acquired absence of other specified parts of digestive tract Status: Inactive Assessment and Plan: Comfort care (13) Sepsis: Code(s): A41.9 - Sepsis, unspecified organism Status: Acute Assessment and Plan: Comfort care Additional Plan Comfort and hospice care Subjective Date/time seen: 12/20/20 10:33 Interval history: Patient is a 85 yo F with history of dementia, insulin-dependent diabetes, and anemia who is seen in follow up for suspected GI bleed, a fib with RVR, suspected seizure activity, suspected aspiration pneumonia, as well as, ALEXA, and drainage from anus, suggesting possible infection. Patient is alert, but unable to tell me her name at bedside. Night RN at bedside states a rapid was called at roughly 0600 for a fib with RVR. She is now apparently in sinus rhythm with rate in 90s. RN had placed NR mask on as patient desaturated this morning. NG tube placed this morning as well. She is on diltiazem drip. No a/c per cardiology recommendations per ED notes due to suspected GI bleed. No other history obtainable from patient. 12/20 Patient is comfortable and not in acute distress at present time Review of Systems Review of Systems: All systems reviewed & are unremarkable except as noted in HPI and below ROS unobtainable: Yes unobtainable due to mental status Exam Narrative: Exam Narrative: General: Patient sitting in semi-edwards's position with NR mas off of face. patient alert but not oriented and does not answer any of my questions. Acutely on chronically ill appearing, frail, elderly. Nursing in room at time of visit. HEENT: Normocephalic, EOMI, oral mucosa tacky. NG tube in place to int suction Cardiovascu
--- NOTE | 2020-12-23 09:50 | P.NEURO_ITS ---
Neurology EEG Report General Information Date of Study: 12/19/20 TEST eeg DIAGNOSIS seizure CONDITION OF RECORDING drowsy and sleep EEG NUMBER [id number] CLINICAL HISTORY no particular history is available but patient has been noted to have seizure- like activity. this particular tracing was done during drowsiness and sleep. EEG DESCRIPTION background rhythm consists of medium to high voltage 2 to 3 hertz per second delta activity admixed with low-voltage 5 to 7 hertz per second theta activity and also low-voltage beta activity. Bilateral symmetrical sleep activity seen during sleep. Non paroxysmal. Nonfocal. Nonlateralizing. IMPRESSION Abnormal record due to the presence of bihemispheric theta and delta activity without evidence of any paroxysmal discharge these abnormalities are consistent with the diagnosis of metabolic encephalopathy
--- NOTE | 2021-01-06 15:26 | P.DS_ITS ---
DS: Admitting Diagnosis Admitting Diagnosis Admitting Diagnosis: Acute Gi bleed IDDM Acute renal insufficiency DS: Discharge Diagnosis Discharge Diagnosis (1) Acute upper GI bleed: Code(s): K92.2 - Gastrointestinal hemorrhage, unspecified Status: Acute (2) Acute renal failure: Qualifiers: Acute renal failure type: with other specified pathological lesion Qualified Code(s): N17.8 - Other acute kidney failure Code(s): N17.9 - Acute kidney failure, unspecified Status: Acute (3) Dementia: Qualifiers: Dementia behavioral disturbance: without behavioral disturbance Dementia type: unspecified type Qualified Code(s): F03.90 - Unspecified dementia without behavioral disturbance Code(s): F03.90 - Unspecified dementia without behavioral disturbance Status: Acute (4) Insulin dependent diabetes mellitus: Status: Acute DS: Summary Hospital Course Reason for hospitalization: Acute GI bleed Hospital Course: 85 years old female ws admitted with complaints of upper gi b led and weakness. Patient also had acute renal insufficiency. Patient was given fluids and blood. Patient did not get better and was discharged under hospice care. Time spent discussing smoking cessation with patient: 3 to 10 minutes Status at Discharge Cognitive/behavioral status at discharge: Stable Functional status at discharge: bed bound Overall status at discharge: patient is not back to baseline Time Spent with Patient Time attestation: Total time spent providing and/or coordinating discharge services: Time spent: Less than 30 minutes Exam Narrative: Exam Narrative: HEENT: pharyngeal mucosa pink and intact, nasogastric tube in place left naris NECK: No JVD CHEST: Coarse breath sounds. Normal effort. HEART: NL S1/S2, regular, no murmur ABDOMEN: BS hypoactive, soft, nontender, no mass, no bruits EXTREMITIES: No cyanosis, edema, or clubbing NEUROLOGIC: CN intact and symmetric to inspection. MUSCULOSKELETAL: Tone symmetric. PSYCH: Sleeping and does not respond to voice or touch Discharge Plan Discharge Attending physician on discharge: Hiram Whiting Discharging Clinician: Hiram Whiting Patient Disposition: Activity: as tolerated Diet: as tolerated Discharge Medications: No Action No Home Medications RF: 0 Date of admission: 12/20/20 10:45 Primary Care Provider: Milad Curry Admitting Provider: Martinez Roldan Attending physician on admission: Martinez Roldan
== END 2020-12-20 11:24 | disposition hospice, inpatient (51) | DRG 871 ==
LOC: ANHED 18:08 → ANHIMU 12-19 06:46
PROVIDERS: Family Medicine; Physician Assistant; Admitting Provider Family Medicine; Emergency Provider Emergency Medicine; PCP Family Medicine; Visit Provider Physician Assistant
DX: A41.9 Sepsis, unspecified organism (principal); J18.9 Pneumonia, unspecified organism; R65.21 Severe sepsis with septic shock; N17.8 Other acute kidney failure; K92.0 Hematemesis; K22.10 Ulcer of esophagus without bleeding; K62.9 Disease of anus and rectum, unspecified; R56.9 Unspecified convulsions; F03.90 Unspecified dementia, unspecified severity, without behavioral disturbance, psychotic disturbance, mood disturbance, and anxiety; I48.91 Unspecified atrial fibrillation; E86.0 Dehydration; R77.8 Other specified abnormalities of plasma proteins; D32.9 Benign neoplasm of meninges, unspecified; R93.89 Abnormal findings on diagnostic imaging of other specified body structures; D64.9 Anemia, unspecified; E11.9 Type 2 diabetes mellitus without complications; Z79.4 Long term (current) use of insulin; Z79.899 Other long term (current) drug therapy; Z86.16 Personal history of COVID-19; Z90.49 Acquired absence of other specified parts of digestive tract; Z93.3 Colostomy status
CPT/HCPCS: 36415; 70450; 71045; 80048; 80053; 81001; 82010; 82803; 82948; 83605; 83690; 83735; 84443; 84484; 85014; 85018; 85025; 86850; 86900; 86901; 86923; 87040; 87077; 87086; 87088; 87186; 93005; 95816; 96361; 96365; 96375; 99285; C9113; J0153; J1815; J1953; J2020; J2543; J7030; J7040; J7120

== ENCOUNTER 2020-12-20 10:45 | HOS | payer OTHER, SELFPAY ==
[2020-12-20 12:03] VITALS: BMI 21.9
[2020-12-20 12:12] VITALS: O2SAT 95
[2020-12-20] MEDS: HYDROmorphone HCL INJ (*CRX) 1 MG/ML SYR IV PUSH (12:20)
[2020-12-20] MEDS: LORazepam INJ (*CRX) 2 MG/ML VIAL 1 MG IV PUSH (12:21)
[2020-12-20 13:28] VITALS: PULSE 68; RESP 14
[2020-12-20] MEDS: HYDROmorphone HCL/PF (*CRX) 50 MG in SODIUM CHLORIDE 0.9% IV 95 ML IV CONT (13:28)
--- NOTE | 2020-12-20 17:53 | PM.IMHP ---
H&P: HPI History of Present Illness Date/Time: 12/20/20 17:53 Chief Complaint: uncontrolled restlessness Narrative: Yennifer Baer is a 85 year old female admitted December 19 with nausea vomiting coffee-ground emesis. She was recently discharged from [facility] after being treated for pneumonia with sepsis. She had a negative swallow evaluation at that time. Which she presented to the emergency department she was in atrial fibrillation with rapid ventricular rate. This was controlled with IV diltiazem and she converted back to sinus rhythm. Also w evan in the emergency department on December 19 she experienced an episode of apparent seizure like activity. Hemoglobin dropped and 7.9 to 7.0. EGD revealed ulcerative esophagitis. Because of her poor functional status and uncontrolled restlessness and confusion and advanced dementia and her inability to eat and drink her family opted for comfort care only with inpatient hospice. Review of Systems Review of Systems: ROS unobtainable: Yes unobtainable due to medical condition PMFSH Past Medical History Medical History Chronic anemia COVID-19 (~09/2020) Dementia Depression Diverticulitis With history of perforation/abscess status post Orin's procedure. History of gallbladder disease Previously treated at [facility] with percutaneous cholecystostomy tube in early 2018. History of pulmonary embolism Insulin dependent diabetes mellitus Meningioma Ulcerative esophagitis (~11/26/20) Surgical History Surgical History History of colectomy Orin's procedure for perforated diverticulitis at [facility] Family History Family History Other Unknown family medical history Social History Social History (Updated 12/20/20 @ 17:57 by Martinez Roldan MD) Social History: The patient is a resident at [facility]. Unknown if she has ever smoked. No mention of alcohol or drug use. Her [id number], Amy Baer, is her emergency contact. She is now DNR on inpatient hospice service. Gender identity (if verbalized by the patient): Female Spiritual care concerns: No Meds Home Medications and Allergies Allergies Allergy/AdvReac Type Severity Reaction Status Date / Time No Known Allergies Allergy Unverified 12/18/20 19:55 Vital Signs Vital Signs - 24 hr 12/20/20 12:12 12/20/20 13:28 Pulse Rate 68 Respiratory Rate 14 Pulse Oximetry 95 Exam Narrative: Exam Narrative: HEENT: pharyngeal mucosa pink and intact, nasogastric tube in place left naris NECK: No JVD CHEST: Coarse breath sounds. Normal effort. HEART: NL S1/S2, regular, no murmur ABDOMEN: BS hypoactive, soft, nontender, no mass, no bruits EXTREMITIES: No cyanosis, edema, or clubbing NEUROLOGIC: CN intact and symmetric to inspection. MUSCULOSKELETAL: Tone symmetric. PSYCH: Sleeping and does not respond to voice or touch Assessment and Plan Assessment and plan (1) Palliative care by specialist: Code(s): Z51.5 - Encounter for palliative care Status: Acute Assessment and Plan: Meets general inpatient criteria due to uncontrolled restlessness and confusion requiring continuous IV narcotic for control P.r.n. lorazepam P.r.n. glycopyrrolate P.r.n. prochlorperazine Due to significant output will continue nasogastric tube at low intermittent suction for now to avoid recurrent emesis (2) Acute upper GI bleed: Code(s): K92.2 - Gastrointestinal hemorrhage, unspecified Status: Acute (3) Acute renal failure: Qualifiers: Acute renal failure type: with other specified pathological lesion Qualified Code(s): N17.8 - Other acute kidney failure Code(s): N17.9 - Acute kidney failure, unspecified Status: Acute (4) Dementia: Quali
--- NOTE | 2020-12-20 18:00 | PC.NURSE ---
Patient transferred to [facility], report given to Berry HERNANDEZ. Patient arrived to room in bed with 4L nasal cannula and ng hooked back up to low intermittent suction when arrived at 1755
--- NOTE | 2020-12-20 18:08 | PC.NURSE ---
This patient, Yennifer Baer, was received from IMU on 12/20/20 at 1800. Received report from MARY Pena. Patient/family oriented to unit policies and routines
[2020-12-20 20:00] VITALS: BP 86/42; PULSE 82; RESP 18; TEMP 35.9; O2SAT 94
[2020-12-20 20:35] VITALS: O2SAT 94
[2020-12-21 04:39] VITALS: BP 97/46; PULSE 99; RESP 14; TEMP 36.4
[2020-12-21 08:00] VITALS: BP 111/53; PULSE 66; RESP 20; TEMP 37.1; O2SAT 86
[2020-12-21] MEDS: GLYCOPYRROLATE INJ (*SP) 0.2 MG/ML VIAL 0.1 MG IV PUSH ×3 (09:56→18:42)
--- NOTE | 2020-12-21 11:54 | PM.IMPN ---
Progress Note: A&P Assessment and Plan (1) Palliative care by specialist: Code(s): Z51.5 - Encounter for palliative care Status: Acute Assessment and Plan: Meets general inpatient criteria due to uncontrolled restlessness and confusion requiring continuous IV narcotic for control P.r.n. lorazepam P.r.n. glycopyrrolate P.r.n. prochlorperazine Due to significant output will continue nasogastric tube at low intermittent suction for now to avoid recurrent emesis (2) Acute upper GI bleed: Code(s): K92.2 - Gastrointestinal hemorrhage, unspecified Status: Acute (3) Acute renal failure: Qualifiers: Acute renal failure type: with other specified pathological lesion Qualified Code(s): N17.8 - Other acute kidney failure Code(s): N17.9 - Acute kidney failure, unspecified Status: Acute (4) Dementia: Qualifiers: Dementia type: unspecified type Dementia behavioral disturbance: without behavioral disturbance Qualified Code(s): F03.90 - Unspecified dementia without behavioral disturbance Code(s): F03.90 - Unspecified dementia without behavioral disturbance Status: Acute (5) Insulin dependent diabetes mellitus: Status: Acute Subjective Date/time seen: 12/21/20 11:54 Interval history: Admitted inpatient hospice 12/20 due to uncontrolled restlessness. 12/21: Sleeping all day. Review of Systems Review of Systems: ROS unobtainable: Yes unobtainable due to medical condition Exam Narrative: Exam Narrative: HEENT: pharyngeal mucosa pink and intact, nasogastric tube in place left naris NECK: No JVD CHEST: Coarse breath sounds. Normal effort. HEART: NL S1/S2, regular, no murmur ABDOMEN: BS hypoactive, soft, nontender, no mass, no bruits EXTREMITIES: No cyanosis, edema, or clubbing NEUROLOGIC: CN intact and symmetric to inspection. MUSCULOSKELETAL: Tone symmetric. PSYCH: Sleeping and does not respond to voice or touch Objective Data Vital Signs Vital Signs: Vital Signs - 24 hr 12/20/20 12:12 12/20/20 13:28 12/20/20 20:00 Temperature 96.6 F L Pulse Rate 68 82 Respiratory Rate 14 18 Blood Pressure 86/42 L Pulse Oximetry 95 94 12/20/20 20:35 12/21/20 04:39 12/21/20 08:00 Temperature 97.6 F 98.8 F Pulse Rate 99 66 Respiratory Rate 14 20 Blood Pressure 97/46 L 111/53 L Pulse Oximetry 94 86 L Meds/Results Medications: Active Medications Generic Name Dose Route Start Last Admin Trade Name Freq PRN Reason Stop Dose Admin Artificial Tears 1 - 2 drop 12/20/20 11:57 Artificial Tears Op Soln 15 Ml Bottle EACH EYE PRN PRN Dry Eye(s) COMFORT Bisacodyl 10 mg 12/20/20 11:57 Bisacodyl 10 Mg Suppository RECTAL QAM PRN Constipation Glycopyrrolate 0.1 mg 12/20/20 11:56 12/21/20 09:56 Glycopyrrolate Inj (*Sp) 0.2 Mg/Ml Vial IV PUSH 0.1 mg Q4H PRN Administration Secretions Hydromorphone HCl 1 mg 12/20/20 11:54 12/20/20 12:20 Hydromorphone Hcl Inj (*Crx) 1 Mg/Ml Syr IV PUSH 1 mg Q2H PRN Administration Pain Hydromorphone HCl 50 mg/ 100 mls @ 0.5 mls/hr 12/20/20 12:30 12/20/20 13:28 Sodium Chloride IV CONT 0.25 mg/hr .Q24H MIKE 0.5 mls/hr Administration 0.25 MG/HR Lorazepam 1 mg 12/20/20 11:55 12/20/20 12:21 Lorazepam Inj (*Crx) 2 Mg/Ml Vial IV PUSH 1 mg Q4H PRN Administration Anxiety Prochlorperazine Edisylate 10 mg 12/20/20 11:55 Prochlorperazine Edisylate 10 Mg/2 Ml Vial IV PUSH Q6H PRN Nausea And Vomiting
[2020-12-21] MEDS: ATROPINE SULFATE 1% OPHTH SOLN 5 ML BOTTLE 1 DROP SUBLINGUAL ×2 (12:53→17:13)
[2020-12-21 17:14] VITALS: PULSE 74
[2020-12-21] MEDS: HYDROmorphone HCL/PF (*CRX) 50 MG in SODIUM CHLORIDE 0.9% IV 95 ML IV CONT (17:14)
[2020-12-21] MEDS: LORazepam INJ (*CRX) 2 MG/ML VIAL 1 MG IV PUSH (18:42)
[2020-12-21 20:35] VITALS: O2SAT 86
[2020-12-21 22:00] VITALS: BP 88/25; PULSE 120; RESP 10; TEMP 37.1
[2020-12-22] MEDS: ATROPINE SULFATE 1% OPHTH SOLN 5 ML BOTTLE 1 DROP SUBLINGUAL ×6 (00:28→22:50)
[2020-12-22] MEDS: LORazepam INJ (*CRX) 2 MG/ML VIAL 1 MG IV PUSH ×6 (00:29→22:49)
[2020-12-22] MEDS: HYDROmorphone HCL INJ (*CRX) 1 MG/ML SYR IV PUSH ×2 (00:29→06:19)
[2020-12-22] MEDS: GLYCOPYRROLATE INJ (*SP) 0.2 MG/ML VIAL 0.1 MG IV PUSH ×4 (02:28→18:11)
[2020-12-22 08:50] VITALS: BP 95/36; PULSE 107; RESP 16; TEMP 36.7; O2SAT 94
[2020-12-22 11:16] VITALS: TEMP 38.3
[2020-12-22] MEDS: ACETAMINOPHEN 650 MG SUPPOSITORY RECTAL (11:16)
[2020-12-22 12:16] VITALS: TEMP 37
--- NOTE | 2020-12-22 13:39 | PM.IMPN ---
Progress Note: A&P Assessment and Plan (1) Palliative care by specialist: Code(s): Z51.5 - Encounter for palliative care Status: Acute Assessment and Plan: Meets general inpatient criteria due to uncontrolled restlessness and confusion requiring continuous IV narcotic for control P.r.n. lorazepam P.r.n. glycopyrrolate P.r.n. prochlorperazine Due to significant output will continue nasogastric tube at low intermittent suction for now to avoid recurrent emesis (2) Acute upper GI bleed: Code(s): K92.2 - Gastrointestinal hemorrhage, unspecified Status: Acute (3) Acute renal failure: Qualifiers: Acute renal failure type: with other specified pathological lesion Qualified Code(s): N17.8 - Other acute kidney failure Code(s): N17.9 - Acute kidney failure, unspecified Status: Acute (4) Dementia: Qualifiers: Dementia type: unspecified type Dementia behavioral disturbance: without behavioral disturbance Qualified Code(s): F03.90 - Unspecified dementia without behavioral disturbance Code(s): F03.90 - Unspecified dementia without behavioral disturbance Status: Acute (5) Insulin dependent diabetes mellitus: Status: Acute Subjective Date/time seen: 12/22/20 13:39 Interval history: Admitted inpatient hospice 12/20 due to uncontrolled restlessness. 12/22: Sleeping all day. Review of Systems Review of Systems: ROS unobtainable: Yes unobtainable due to medical condition Exam Narrative: Exam Narrative: HEENT: pharyngeal mucosa pink and intact, nasogastric tube in place left naris NECK: No JVD CHEST: Coarse breath sounds. Normal effort. HEART: NL S1/S2, regular, no murmur ABDOMEN: BS hypoactive, soft, nontender, no mass, no bruits EXTREMITIES: No cyanosis, edema, or clubbing NEUROLOGIC: CN intact and symmetric to inspection. MUSCULOSKELETAL: Tone symmetric. PSYCH: Sleeping and does not respond to voice or touch Objective Data Vital Signs Vital Signs: Vital Signs - 24 hr 12/21/20 17:14 12/21/20 20:35 12/21/20 22:00 Temperature 98.7 F Pulse Rate 74 120 H Respiratory Rate 10 L Blood Pressure 88/25 L Pulse Oximetry 86 L 12/22/20 08:50 12/22/20 11:16 12/22/20 12:16 Temperature 98.0 F 101 F H 98.6 F Pulse Rate 107 H Respiratory Rate 16 Blood Pressure 95/36 L Pulse Oximetry 94 Intake/Output Intake/Output: Intake & Output 12/19/20 12/20/20 12/21/20 12/22/20 23:59 23:59 23:59 23:59 Intake Total 100 Balance 100 Meds/Results Medications: Active Medications Generic Name Dose Route Start Last Admin Trade Name Freq PRN Reason Stop Dose Admin Acetaminophen 650 mg 12/22/20 10:45 12/22/20 11:16 Acetaminophen 650 Mg Suppository RECTAL 650 mg Q4H PRN Administration Mild Pain (1-3) or Fever Artificial Tears 1 - 2 drop 12/20/20 11:57 Artificial Tears Op Soln 15 Ml Bottle EACH EYE PRN PRN Dry Eye(s) COMFORT Atropine Sulfate 1 drop 12/21/20 12:26 12/22/20 10:28 Atropine Sulfate 1% Ophth Soln 5 Ml Bottle SUBLINGUAL 1 drop Q4H PRN Administration Secretions Bisacodyl 10 mg 12/20/20 11:57 Bisacodyl 10 Mg Suppository RECTAL QAM PRN Constipation Glycopyrrolate 0.1 mg 12/20/20 11:56 12/22/20 08:32 Glycopyrrolate Inj (*Sp) 0.2 Mg/Ml Vial IV PUSH 0.1 mg Q4H PRN Administration Secretions Hydromorphone HCl 1 mg 12/20/20 11:54 12/22/20 06:19 Hydromorphone Hcl Inj (*Crx) 1 Mg/Ml Syr IV PUSH 1 mg Q2H PRN Administration Pain Hydromorphone HCl 50 mg/ 100 mls @ 0.5 mls/hr 12/20/20 12:30 12/21/20 17:14 Sodium Chloride IV CONT 0.25 mg/hr .Q24H MIKE 0.5 mls/hr Administration 0.25 MG/HR Lorazepam 1 mg 12/20/20 11:55 12/22/20 10:27 Lorazepam Inj (*Crx) 2 Mg/Ml Vial IV PUSH 1 mg Q4H PRN Administration Anxiety Prochlorperazine Edisylate 10 mg 12/20/20 11:55 Prochlorperazine Ed
[2020-12-22 18:01] VITALS: PULSE 75
[2020-12-22] MEDS: HYDROmorphone HCL/PF (*CRX) 50 MG in SODIUM CHLORIDE 0.9% IV 95 ML IV CONT (18:01)
[2020-12-22 20:00] VITALS: O2SAT 94
--- NOTE | 2020-12-22 23:36 | PC.NURSE ---
Patient time of 23:17 12/22/2020.
--- NOTE | 2020-12-23 14:27 | PM.DDS ---
Discharge Sum: Prov Provider Primary care physician: Milad Curry MD Admitting provider: Martinez Roldan MD Consults: 12/20/20 11:45 Consult to Spiritual Care Services Routine Comment: Discharge Sum: Diag Contributing Factors (1) Acute upper GI bleed: (2) Acute renal failure: (3) Dementia: (4) Insulin dependent diabetes mellitus: Discharge Sum: Summary Date and Time Date of admission: 12/20/20 11:45 Summary Details: admitted December 19 with nausea vomiting coffee-ground emesis. She was recently discharged from [facility] after being treated for pneumonia with sepsis. She had a negative swallow evaluation at that time. Which she presented to the emergency department she was in atrial fibrillation with rapid ventricular rate. This was controlled with IV diltiazem and she converted back to sinus rhythm. Also w evan in the emergency department on December 19 she experienced an episode of apparent seizure like activity. Hemoglobin dropped and 7.9 to 7.0. EGD revealed ulcerative esophagitis. Because of her poor functional status and uncontrolled restlessness and confusion and advanced dementia and her inability to eat and drink her family opted for comfort care only with inpatient hospice. Medications were titrated to comfort and she peacefully. Additional Data Attending physician: Martinez Roldan MD
--- NOTE | 2021-01-03 13:20 | PM.DDS ---
Discharge Sum: Prov Provider Primary care physician: Milad Curry MD Admitting provider: Martinez Roldan MD Consults: 12/20/20 11:45 Consult to Spiritual Care Services Routine Comment: Discharge Sum: Diag Contributing Factors (1) Acute upper GI bleed: (2) Acute renal failure: (3) Dementia: (4) Insulin dependent diabetes mellitus: Discharge Sum: Summary Date and Time Date of admission: 12/20/20 10:45 Additional Data Attending physician: Martinez Roldan MD
== END 2020-12-22 23:17 | disposition expired | DRG 951 ==
LOC: ANHIMU 11:42 → ANH2MED 12-23 03:06 → ANHIMU 12-26 10:23
PROVIDERS: Admitting Provider Internal Medicine; PCP Family Medicine; Visit Provider Internal Medicine
DX: Z51.5 Encounter for palliative care (principal); K92.2 Gastrointestinal hemorrhage, unspecified; N17.9 Acute kidney failure, unspecified; K22.10 Ulcer of esophagus without bleeding; I48.91 Unspecified atrial fibrillation; F03.90 Unspecified dementia, unspecified severity, without behavioral disturbance, psychotic disturbance, mood disturbance, and anxiety; Z66 Do not resuscitate; D64.9 Anemia, unspecified; F32.9 Major depressive disorder, single episode, unspecified; E11.9 Type 2 diabetes mellitus without complications; Z86.16 Personal history of COVID-19; Z86.711 Personal history of pulmonary embolism
CPT/HCPCS: A9270; J1170; J2060